=== PATIENT | female | born 1995 | race African-American/Black ===

== ENCOUNTER 2017-08-19 14:38 | Emergency (ER) | payer SELFPAY ==
[2017-08-19 15:13] LABS: Hematocrit 37.1 % (36.0-47.0); Mean Platelet Volume 8.8 fL (7.4-10.4); Red Blood Cell (RBC) Count 4.46 mill/uL (4.00-5.20); White Blood Cell (WBC) Count 6.4 thou/uL (4.8-10.8)
[2017-08-19 15:28] LABS: Band 1 % (5-11); Neutrophil 34 % (31-61); Ovalocytes SLIGHT = 2-5 cells (100X) (0-1/hpf); Polychromasia SLIGHT = 2-3 cells (100X) (0-2/hpf); Reactive Lymphocytes 16 % (0-10)
[2017-08-19 15:34] LABS: ALT (SGPT) 15 U/L (8-55); AST (SGOT) 18 U/L (5-34); Alkaline Phosphatase 65 U/L (40-150); Anion Gap 11 mmol/L (10-20); BUN (Urea Nitrogen) 12 mg/dL (7.0-18.7); Bilirubin, Total 0.6 mg/dL (0.2-1.2); Calc. Creatinine Clearance 0 mL/min (70-130); Calcium 9.7 mg/dL (7.8-10.44); Carbon Dioxide 25 mmol/L (22-29); Chloride 106 mmol/L (98-107); Estimated GFR-MDRD Greater than 90; Globulin 3.4 g/dL (2.4-3.5); Lipase 26 U/L (8-78); Protein, Total 7.6 g/dL (6.0-8.3)
[2017-08-19 16:35] LABS: Bilirubin Negative (Negative); Blood, Urine Negative (Negative); Glucose, Urine (Dipstick) Negative (Negative); Ketone, Urine Negative (Negative); Nitrite Negative (Negative); Protein, Urine (Dipstick) Negative (Neg-Trace); Urobilinogen 0.2 mg/dL (0.2-1.0)
[2017-08-19] MEDS ORDERED: Azithromycin 250 MG TAB ONE (16:53)
[2017-08-19] MEDS ORDERED: Gentamicin 80 MG/2 ML VIAL ONE (17:02)
== END 2017-08-19 18:05 | disposition home or self-care (01) ==
LOC: ERS 14:38
DX: N72 Inflammatory disease of cervix uteri (principal); A64 Unspecified sexually transmitted disease; I10 Essential (primary) hypertension; J45.909 Unspecified asthma, uncomplicated; Z79.899 Other long term (current) drug therapy
CPT/HCPCS: 36415; 80053; 81003; 81025; 83690; 85025; 87480; 87491; 87510; 87591; 87660; 96372; J1580

== ENCOUNTER 2017-08-27 20:51 | Emergency (ER) | payer MEDICAID, SELFPAY ==
[2017-08-27 21:14] LABS: Bilirubin Negative (Negative); Blood, Urine Negative (Negative); Glucose, Urine (Dipstick) Negative (Negative); Ketone, Urine Negative (Negative); Nitrite Negative (Negative); Protein, Urine (Dipstick) Negative (Neg-Trace)
[2017-08-27 21:16] LABS: Bacteria/HPF 1+ HPF (None Seen); Hyaline Casts/LPF 0-3 HYALINE CAST LPF (0-3 Hyaline); RBC/HPF 0-3 HPF (0-3); Squamous Epithelial 0-3 HPF (0-3); WBC/HPF 0-3 HPF (0-3)
--- NOTE | 2017-08-27 22:32 | ULT ---
PELVIC ULTRASOUND 08/27/17 HISTORY: Pelvic pain and lower back pain for two weeks. History of prior D\T\C in 04/2017. FINDINGS: Multiple transabdominal and endovaginal sonographic images of the pelvis are obtained. The uterus demonstrates a normal sonographic appearance and measures 8.1 cm x 3.8 cm x 4.9 cm. The endometrial stripe measures 0.6 cm in thickness which is within normal limits in a normal menstruat ing female patient. No fluid or fluid collection is seen in the endometrial cavity. The ovaries demonstrate a normal sonographic appearance bilaterally with peripheral follicles seen. The right ovary measures 3.5 cm x 1.8 cm x 2.8 cm with the left ovary measuring 8.6 cm x 2.2 cm x 1. 6 cm. Doppler evaluation of each ovary with spectral analysis and color flow evaluation demonstrates arter ial and venous flow. IMPRESSION: Normal appearing bilateral ovaries and uterus. POS: [facility]
== END 2017-08-27 22:59 | disposition left against medical advice (07) ==
LOC: ERS 20:51
DX: R10.30 Lower abdominal pain, unspecified (principal); I10 Essential (primary) hypertension; J45.909 Unspecified asthma, uncomplicated
CPT/HCPCS: 76856; 81003; 81015; 81025

== ENCOUNTER 2017-09-12 15:45 | Emergency (ER) | payer SELFPAY ==
[2017-09-12] MEDS ORDERED: Ondansetron ODT 4 MG TAB ONE (16:34)
[2017-09-12 16:41] LABS: #Basophils 0.1 thou/uL (0.0-0.2); #Eosinphils 0.2 thou/uL (0.0-0.7); #Lymphocytes 2.4 thou/uL (1.20-3.40); #Monocytes 0.3 thou/uL (0.11-0.59); #Neutrophils 1.9 thou/uL (1.40-6.50); %Basophils 1.3 % (0.0-1.0); %Eosinophils 3.8 % (0.0-10.0); %Lymphocytes 49.9 % (28.0-48.0); %Monocytes 5.6 % (0.0-4.0); Hematocrit 36.1 % (36.0-47.0); Mean Platelet Volume 9.1 fL (7.4-10.4); Red Blood Cell (RBC) Count 4.34 mill/uL (4.00-5.20); White Blood Cell (WBC) Count 4.9 thou/uL (4.8-10.8)
[2017-09-12 17:21] LABS: ALT (SGPT) 10 U/L (8-55); AST (SGOT) 15 U/L (5-34); Alkaline Phosphatase 47 U/L (40-150); Anion Gap 9 mmol/L (10-20); BUN (Urea Nitrogen) 7 mg/dL (7.0-18.7); Bilirubin, Total 0.8 mg/dL (0.2-1.2); Calc. Creatinine Clearance 0 mL/min (70-130); Calcium 9.3 mg/dL (7.8-10.44); Carbon Dioxide 26 mmol/L (22-29); Chloride 106 mmol/L (98-107); Estimated GFR-MDRD Greater than 90; Globulin 3.2 g/dL (2.4-3.5); Lipase 17 U/L (8-78); Protein, Total 7.1 g/dL (6.0-8.3)
[2017-09-12 17:21] LABS: Bilirubin Negative (Negative); Blood, Urine Negative (Negative); Glucose, Urine (Dipstick) Negative (Negative); Ketone, Urine Negative (Negative); Nitrite Negative (Negative); Protein, Urine (Dipstick) Trace mg/dL (Neg-Trace)
[2017-09-12 17:23] LABS: Bacteria/HPF 1+ HPF (None Seen); RBC/HPF 0-3 HPF (0-3); WBC/HPF 21-50 HPF (0-3)
[2017-09-12 17:25] LABS: Hyaline Casts/LPF 4-6 HYALINE CAST LPF (0-3 Hyaline)
--- NOTE | 2017-09-12 18:46 | ULT ---
PELVIC ULTRASOUND INCLUDING TRANSABDOMINAL AND VASCULAR DUPLEX WITH COLOR AND SPECTRAL DOPPLER IMAGI NG 09/12/17 HISTORY: Suprapubic pain for three days. FINDINGS: The uterus measures 9.7 x 4.7 x 7.0 cm. Endometrium is 0.5 cm. Right ovary measures 4.3 x 2.6 x 2.7 cm. The left ovary measures 3.6 x 2.8 x 2.2 cm. Incidental 1.8 cm diameter right ovarian follicle cy st. No abscess or abnormal fluid collection. There is some trace cul-de-sac fluid. COLOR AND SPECTRAL DOPPLER IMAGING WITH VASCULAR DUPLEX TO BOTH OVARIES: Vascular flow is documented bilaterally. No evidence for ovarian torsion. IMPRESSION: Unremarkable pelvic ultrasound. Appearance is stable when compared to a recent study of 08/27/17. POS: [facility]
== END 2017-09-12 19:05 | disposition home or self-care (01) ==
LOC: ERS 15:45
DX: R10.30 Lower abdominal pain, unspecified (principal); R51 Headache; I10 Essential (primary) hypertension; J45.909 Unspecified asthma, uncomplicated
CPT/HCPCS: 36415; 76856; 80053; 81003; 81015; 81025; 83690; 85025; Q0162

== ENCOUNTER 2017-10-10 09:50 | Emergency (ER) | payer SELFPAY ==
[2017-10-10 10:14] LABS: Bilirubin Negative (Negative); Blood, Urine Negative (Negative); Glucose, Urine (Dipstick) Negative (Negative); Ketone, Urine Negative (Negative); Nitrite Negative (Negative); Protein, Urine (Dipstick) Negative (Neg-Trace)
[2017-10-10 10:17] LABS: Bacteria/HPF 1+ HPF (None Seen); Hyaline Casts/LPF 4-6 HYALINE CAST LPF (0-3 Hyaline); RBC/HPF 0-3 HPF (0-3); WBC/HPF 21-50 HPF (0-3)
== END 2017-10-10 10:45 | disposition home or self-care (01) ==
LOC: ERS 09:50
DX: N30.00 Acute cystitis without hematuria (principal); I10 Essential (primary) hypertension; J45.909 Unspecified asthma, uncomplicated
CPT/HCPCS: 81003; 81015; 81025; 99284

== ENCOUNTER 2017-12-26 14:15 | Emergency (ER) | payer MEDICAID, SELFPAY ==
[2017-12-26 14:55] LABS: Bilirubin Negative (Negative); Blood, Urine Negative (Negative); Clarity CLOUDY (Clear); Glucose, Urine (Dipstick) Negative (Negative); Leukocyte Small (Negative); Nitrite Negative (Negative); Protein, Urine (Dipstick) Negative (Neg-Trace); Specific Gravity, Urine 1.025 (1.002-1.036)
[2017-12-26 14:57] LABS: Pregnancy Test - Urine (BHCG) Negative (Negative); Pregu Control Background? CLEAR/WHITE (CLR/WHITE); Pregu Control Bar Appear? YES (CONTROL BAR); Specific Gravity 1.025 (1.002-1.036)
[2017-12-26 14:58] LABS: Bacteria/HPF Rare-Few HPF (None Seen); Hyaline Casts/LPF 4-6 HYALINE CAST LPF (0-3 Hyaline); Pathc Cast-AUWi Flag 0.67 (0-2.49); RBC/HPF 0-3 HPF (0-3)
[2017-12-26 15:08] LABS: Hemoglobin 12.8 g/dL (12.0-16.0); Mean Corpuscular HGB CONC 32.5 g/dL (32.0-36.0); Mean Corpuscular Hemoglobin 27.7 pg (27.0-31.0); Mean Platelet Volume 9.1 fL (7.4-10.4); Platelet Count 207 thou/uL (130-400); RBC Distribution Width 12.4 % (11.5-14.5); Red Blood Cell (RBC) Count 4.61 mill/uL (4.20-5.40); White Blood Cell (WBC) Count 5.2 thou/uL (4.8-10.8)
[2017-12-26 15:24] LABS: Eosinophils 2 % (0-10); Lymphocytes 50 % (21-51); MDiff Complete? YES; Monocytes 3 % (0-10); Neutrophil 38 % (42-75); Ovalocytes SLIGHT = 2-5 cells (100X) (0-1/hpf); PLT Morphology Comment Appears Adequate; Reactive Lymphocytes 7 % (0-10)
[2017-12-26 15:36] LABS: ALT (SGPT) 16 U/L (8-55); AST (SGOT) 21 U/L (5-34); Albumin 4.6 g/dL (3.5-5.0); Alkaline Phosphatase 61 U/L (40-150); Anion Gap 10 mmol/L (10-20); BUN (Urea Nitrogen) 8 mg/dL (7.0-18.7); Bilirubin, Total 1.1 mg/dL (0.2-1.2); Calc. Creatinine Clearance 0 mL/min (70-130); Calcium 9.7 mg/dL (7.8-10.44); Carbon Dioxide 25 mmol/L (22-29); Chloride 104 mmol/L (98-107); Estimated GFR-MDRD Greater than 90; Globulin 3.6 g/dL (2.4-3.5); Glucose 74 mg/dL (70-105); Potassium 3.4 mmol/L (3.5-5.1); Protein, Total 8.2 g/dL (6.0-8.3); Sodium 136 mmol/L (136-145)
[2017-12-26] MEDS ORDERED: ISOVUE-370 76%-LOCM 1 ML ONE (16:48)
[2017-12-26 17:12] LABS: Magnesium 1.9 mg/dL (1.6-2.6)
[2017-12-26] MEDS ORDERED: diphenhydrAMINE 50 MG/ML VIAL ONE (18:25)
[2017-12-26] MEDS ORDERED: methylPREDNISolone Sod Succ/PF 125 MG/2 ML VIAL ONE (18:25)
[2017-12-26] MEDS ORDERED: Famotidine/PF 20 mg/2ml Vial ONE (18:25)
[2017-12-26] MEDS ORDERED: Ondansetron HCl/PF 4 MG/2 ML Vial ONE (18:52)
--- NOTE | 2017-12-26 20:09 | CT ---
CT OF ABDOMEN AND PELVIS PERFORMED WITH INTRAVENOUS CONTRAST ENHANCEMENT: 12/26/17 HISTORY: Abdominal pain which is now localized more to the right lower quadrant. The lung bases are clear. The liver, spleen, pancreas regions all appear unremarkable. The gallbladde r has been removed. Right and left adrenal glands and right and left kidneys are normal in sizes. No obstruction or renal calculi. No significant periaortic or mesenteric adenopathy. No signs of bowel o bstruction. CT OF PELVIS PERFORMED WITH CONTRAST ENHANCEMENT: There is a 2.5 cm right ovarian cyst. The endometrium is somewhat thickened. The appendix is normal. Some slight fullness to the lower uterine and cervix region. No abscess collection or other findings. IMPRESSION: 1. Normal appendix. 2. 2.5 cm right ovarian cyst. 3. Thickened endometrium. This is probable related to stage of menstrual cycle. There is some fu llness in the cervix and vagina region. This may be related to stage of menstrual cycle. POS: [facility]
[2017-12-26] MEDS ORDERED: cefTRIAXone\\ROCEPHIN 250 MG VIAL ONE (20:25)
[2017-12-29 21:53] LABS: Chlamydia by PCR Not Detected (NotDetected); GC by PCR DETECTED (NotDetected)
== END 2017-12-26 20:37 | disposition home or self-care (01) ==
LOC: ERS 14:15
DX: N73.9 Female pelvic inflammatory disease, unspecified (principal); N83.201 Unspecified ovarian cyst, right side; I10 Essential (primary) hypertension; J45.909 Unspecified asthma, uncomplicated
CPT/HCPCS: 36415; 74177; 80053; 81003; 81015; 81025; 83690; 83735; 85025; 87086; 87480; 87491; 87510; 87591; 87660; 96361; 96374; 96375; J0696; J1200; J2270; J2405; J2930; S0028

== ENCOUNTER 2018-01-11 18:44 | Emergency (ER) | payer SELFPAY ==
[2018-01-11 19:17] LABS: #Basophils 0.1 thou/uL (0.0-0.2); #Eosinphils 0.2 thou/uL (0.0-0.7); #Lymphocytes 2.4 thou/uL (1.20-3.40); #Monocytes 0.5 thou/uL (0.11-0.59); #Neutrophils 2.1 thou/uL (1.40-6.50); %Eosinophils 3.7 % (0.0-10.0); %Lymphocytes 45.7 % (21.0-51.0); %Monocytes 8.7 % (0.0-10.0); %Neutrophils 40.9 % (42.0-75.0); Hemoglobin 12.8 g/dL (12.0-16.0); Mean Corpuscular HGB CONC 31.3 g/dL (32.0-36.0); Mean Corpuscular Hemoglobin 26.3 pg (27.0-31.0); Mean Corpuscular Volume 84.1 fl (81.0-99.0); Mean Platelet Volume 8.9 fL (7.4-10.4); Platelet Count 216 thou/uL (130-400); RBC Distribution Width 12.5 % (11.5-14.5); Red Blood Cell (RBC) Count 4.86 mill/uL (4.20-5.40); White Blood Cell (WBC) Count 5.2 thou/uL (4.8-10.8)
[2018-01-11 19:32] LABS: CKMB 0.7 ng/mL (0-6.6); Troponin I 0.015 ng/mL (< 0.028)
[2018-01-11 19:36] LABS: ALT (SGPT) 12 U/L (8-55); AST (SGOT) 28 U/L (5-34); Albumin 4.4 g/dL (3.5-5.0); Alkaline Phosphatase 69 U/L (40-150); Anion Gap 13 mmol/L (10-20); BUN (Urea Nitrogen) 14 mg/dL (7.0-18.7); Bilirubin, Total 0.4 mg/dL (0.2-1.2); CK (CPK) 140 U/L (29-168); Calc. Creatinine Clearance 0 mL/min (70-130); Calcium 9.3 mg/dL (7.8-10.44); Carbon Dioxide 20 mmol/L (22-29); Chloride 107 mmol/L (98-107); Estimated GFR-MDRD Greater than 90; Globulin 3.6 g/dL (2.4-3.5); Glucose 104 mg/dL (70-105); Magnesium 2.3 mg/dL (1.6-2.6); Potassium 3.6 mmol/L (3.5-5.1); Sodium 136 mmol/L (136-145)
[2018-01-11] MEDS ORDERED: Ondansetron HCl/PF 4 MG/2 ML Vial ONE (20:21)
[2018-01-11] MEDS ORDERED: Acetaminophen 500 MG TAB ONE (20:21)
[2018-01-11 20:48] LABS: Pregnancy Test - Urine (BHCG) Negative (Negative); Pregu Control Background? CLEAR/WHITE (CLR/WHITE); Pregu Control Bar Appear? YES (CONTROL BAR); Specific Gravity 1.026 (1.002-1.036)
[2018-01-11] MEDS ORDERED: diphenhydrAMINE 25 MG CAP ONE (21:48)
[2018-01-11] MEDS ORDERED: Metoclopramide HCl 10 MG TAB PO SCH (22:00)
--- NOTE | 2018-01-16 14:30 | EKG ---
Test Reason : Blood Pressure : / mmHG Vent. Rate : 089 BPM Atrial Rate : 089 BPM P-R Int : 118 ms QRS Dur : 104 ms QT Int : 380 ms P-R-T Axes : 075 036 022 degrees QTc Int : 462 ms Normal sinus rhythm Nonspecific T wave abnormality Prolonged QT Abnormal ECG Confirmed by KODI RITCHIE, JORGE ALBERTO ([id number]), technical editor RICARDO HAYES ([id number]) on 01/16/2018 2:30:27 PM Referred By: Confirmed By:JORGE ALBERTO MARIEE MD
== END 2018-01-11 22:20 | disposition home or self-care (01) ==
LOC: ERS 18:44
DX: R55 Syncope and collapse (principal); T46.1X5A Adverse effect of calcium-channel blockers, initial encounter; I10 Essential (primary) hypertension; J45.909 Unspecified asthma, uncomplicated; Z79.899 Other long term (current) drug therapy
CPT/HCPCS: 80053; 81025; 82553; 83735; 84484; 85025; 93005; 96361; 96374; J2405

== ENCOUNTER 2018-02-13 11:21 | Emergency (ER) | payer SELFPAY ==
[2018-02-13] MEDS ORDERED: Ibuprofen 200 MG TAB ONE (11:31)
[2018-02-13] MEDS ORDERED: Ondansetron ODT 4 MG TAB ONE (11:31)
[2018-02-13] MEDS ORDERED: Metoclopramide HCl 10 MG/2 ML VIAL ONE (13:29)
[2018-02-13] MEDS ORDERED: Acetaminophen 500 MG TAB ONE (13:29)
[2018-02-13] MEDS ORDERED: diphenhydrAMINE 50 MG/ML VIAL ONE (13:29)
[2018-02-13 13:40] LABS: Pregnancy Test - Urine (BHCG) Negative (Negative); Pregu Control Background? CLEAR/WHITE (CLR/WHITE); Pregu Control Bar Appear? YES (CONTROL BAR); Specific Gravity 1.022 (1.002-1.036)
[2018-02-13 14:01] LABS: Bilirubin Negative (Negative); Blood, Urine Negative (Negative); Clarity CLOUDY (Clear); Glucose, Urine (Dipstick) Negative (Negative); Leukocyte Negative (Negative); Nitrite Negative (Negative); Protein, Urine (Dipstick) Negative (Neg-Trace); Specific Gravity, Urine 1.022 (1.002-1.036)
== END 2018-02-13 15:35 | disposition home or self-care (01) ==
LOC: ERS 11:21
DX: R11.2 Nausea with vomiting, unspecified (principal); R51 Headache; I10 Essential (primary) hypertension; J45.909 Unspecified asthma, uncomplicated
CPT/HCPCS: 81003; 81025; 96361; 96365; 96375; J1200; J2765; Q0162

== ENCOUNTER 2018-03-20 09:38 | Emergency (ER) | payer SELFPAY ==
[2018-03-20 10:47] LABS: Bilirubin Negative (Negative); Blood, Urine Moderate (Negative); Glucose, Urine (Dipstick) Negative (Negative); Leukocyte Negative (Negative); Nitrite Negative (Negative); Protein, Urine (Dipstick) Negative (Neg-Trace); Urobilinogen 0.2 mg/dL (0.2-1.0); pH, Urine 7.5 (5.0-9.0)
[2018-03-20 10:50] LABS: Clarity Hazy (Clear); Pregnancy Test - Urine (BHCG) Negative (Negative); Pregu Control Background? CLEAR/WHITE (CLR/WHITE); Pregu Control Bar Appear? YES (CONTROL BAR)
[2018-03-20 10:58] LABS: Bacteria/HPF Rare-Few HPF (None Seen); Hyaline Casts/LPF 0-3 HYALINE CAST LPF (0-3 Hyaline); RBC/HPF 0-3 HPF (0-3); Squamous Epithelial 0-3 HPF (0-3); WBC/HPF 0-3 HPF (0-3)
[2018-03-20] MEDS ORDERED: Ibuprofen 800 MG TAB ONE (11:09)
== END 2018-03-20 11:30 | disposition home or self-care (01) ==
LOC: ERS 09:38
DX: R31.9 Hematuria, unspecified (principal); M54.9 Dorsalgia, unspecified; J45.909 Unspecified asthma, uncomplicated
CPT/HCPCS: 81003; 81015; 81025; 99284

== ENCOUNTER 2018-03-28 10:48 | Emergency (ER) | payer SELFPAY ==
[2018-03-28 11:27] LABS: Bilirubin Negative (Negative); Blood, Urine Large (Negative); Clarity CLEAR (Clear); Glucose, Urine (Dipstick) Negative (Negative); Leukocyte Small (Negative); Nitrite Negative (Negative); Protein, Urine (Dipstick) Negative (Neg-Trace); Specific Gravity, Urine 1.014 (1.002-1.036); Urobilinogen 0.2 mg/dL (0.2-1.0); pH, Urine 6.5 (5.0-9.0)
[2018-03-28 11:28] LABS: Bacteria/HPF None Seen HPF (None Seen); Hyaline Casts/LPF 4-6 HYALINE CAST LPF (0-3 Hyaline); Pathc Cast-AUWi Flag 1.01 (0-2.49); Pregnancy Test - Urine (BHCG) Negative (Negative); Pregu Control Background? CLEAR/WHITE (CLR/WHITE); Pregu Control Bar Appear? YES (CONTROL BAR); RBC/HPF GREATER THAN 50-TNTC HPF (0-3); Specific Gravity 1.014 (1.002-1.036)
[2018-03-28 11:41] LABS: #Basophils 0.1 thou/uL (0.0-0.2); #Eosinphils 0.2 thou/uL (0.0-0.7); #Lymphocytes 2.9 thou/uL (1.20-3.40); #Monocytes 0.4 thou/uL (0.11-0.59); #Neutrophils 2.3 thou/uL (1.40-6.50); %Basophils 1.9 % (0.0-1.0); %Eosinophils 4.2 % (0.0-10.0); %Lymphocytes 49.1 % (21.0-51.0); %Monocytes 5.9 % (0.0-10.0); %Neutrophils 38.9 % (42.0-75.0); Hemoglobin 13.1 g/dL (12.0-16.0); Mean Corpuscular HGB CONC 33.7 g/dL (32.0-36.0); Mean Corpuscular Hemoglobin 27.9 pg (27.0-31.0); Mean Corpuscular Volume 82.6 fl (81.0-99.0); Mean Platelet Volume 8.7 fL (7.4-10.4); Platelet Count 165 thou/uL (130-400); RBC Distribution Width 12.7 % (11.5-14.5); White Blood Cell (WBC) Count 5.9 thou/uL (4.8-10.8)
[2018-03-28 12:05] LABS: ALT (SGPT) 14 U/L (8-55); AST (SGOT) 18 U/L (5-34); Albumin 4.4 g/dL (3.5-5.0); Alkaline Phosphatase 50 U/L (40-150); Anion Gap 11 mmol/L (10-20); BUN (Urea Nitrogen) 9 mg/dL (7.0-18.7); Calc. Creatinine Clearance 0 mL/min (70-130); Calcium 9.7 mg/dL (7.8-10.44); Carbon Dioxide 23 mmol/L (22-29); Chloride 108 mmol/L (98-107); Estimated GFR-MDRD Greater than 90; Globulin 3.4 g/dL (2.4-3.5); Glucose 82 mg/dL (70-105); Lipase 24 U/L (8-78); Potassium 3.4 mmol/L (3.5-5.1); Protein, Total 7.8 g/dL (6.0-8.3); Sodium 139 mmol/L (136-145)
== END 2018-03-28 11:53 | disposition home or self-care (01) ==
LOC: ERS 10:48
DX: N39.0 Urinary tract infection, site not specified (principal); I10 Essential (primary) hypertension; J45.909 Unspecified asthma, uncomplicated; N83.209 Unspecified ovarian cyst, unspecified side
CPT/HCPCS: 36415; 80053; 81003; 81015; 81025; 83690; 85025; 99284

== ENCOUNTER 2018-04-22 10:40 | Outpatient (CLI) | payer MEDICAID | END 2018-04-22 10:41 | disposition home or self-care (01) | LOC: BICULT 10:40 | PROVIDERS: ATTEND Family Medicine | DX: N94.6 Dysmenorrhea, unspecified (principal); R10.30 Lower abdominal pain, unspecified | CPT/HCPCS: 76856 ==

== ENCOUNTER 2018-04-29 09:41 | Emergency (ER) | payer MEDICAID ==
[2018-04-29 10:17] LABS: Bilirubin Negative (Negative); Blood, Urine Negative (Negative); Clarity CLEAR (Clear); Glucose, Urine (Dipstick) Negative (Negative); Leukocyte Small (Negative); Nitrite Negative (Negative); Protein, Urine (Dipstick) Negative (Neg-Trace); Specific Gravity, Urine 1.029 (1.002-1.036)
[2018-04-29 10:21] LABS: Pregnancy Test - Urine (BHCG) Negative (Negative); Pregu Control Background? CLEAR/WHITE (CLR/WHITE); Pregu Control Bar Appear? YES (CONTROL BAR); Specific Gravity 1.029 (1.002-1.036)
[2018-04-29 10:22] LABS: Bacteria/HPF Rare-Few HPF (None Seen); Hyaline Casts/LPF 0-3 HYALINE CAST LPF (0-3 Hyaline); Pathc Cast-AUWi Flag 0.14 (0-2.49); RBC/HPF 0-3 HPF (0-3); WBC/HPF 0-3 HPF (0-3)
--- NOTE | 2018-04-29 11:13 | RAD ---
ABDOMEN ONE VIEW: History: Abdominal pain. FINDINGS: Large amount of gas and stool is apparent throughout the colon and rectum. Small bowel gas pattern is nonspecific. Metallic clips overlie the gallbladder fossa. IMPRESSION: 1. Constipation. 2. Status post cholecystectomy. POS: [facility]
[2018-04-29] MEDS ORDERED: Acetaminophen 325 MG TAB ONE (11:59)
[2018-04-29] MEDS ORDERED: Bisacodyl 10 MG SUPP ONE (11:59)
== END 2018-04-29 12:20 | disposition home or self-care (01) ==
LOC: ERS 09:41
DX: K59.00 Constipation, unspecified (principal); I10 Essential (primary) hypertension; J45.909 Unspecified asthma, uncomplicated
CPT/HCPCS: 74018; 81003; 81015; 81025

== ENCOUNTER 2018-06-21 19:16 | Emergency (ER) | payer MEDICAID, SELFPAY ==
[2018-06-21 19:56] LABS: Bilirubin Negative (Negative); Blood, Urine Large (Negative); Clarity CLEAR (Clear); Glucose, Urine (Dipstick) Negative (Negative); Leukocyte Trace (Negative); Nitrite Negative (Negative); Protein, Urine (Dipstick) Negative (Neg-Trace); Specific Gravity, Urine 1.025 (1.002-1.036); pH, Urine 6.5 (5.0-9.0)
[2018-06-21 19:58] LABS: Bacteria/HPF Rare-Few HPF (None Seen); Hyaline Casts/LPF 4-6 HYALINE CAST LPF (0-3 Hyaline); Pathc Cast-AUWi Flag 0.43 (0-2.49); Pregnancy Test - Urine (BHCG) Negative (Negative); Pregu Control Background? CLEAR/WHITE (CLR/WHITE); Pregu Control Bar Appear? YES (CONTROL BAR); Specific Gravity 1.025 (1.002-1.036); Squamous Epithelial 0-3 HPF (0-3)
[2018-06-21 20:50] LABS: Hemoglobin 12.6 g/dL (12.0-16.0); Mean Corpuscular HGB CONC 33.5 g/dL (32.0-36.0); Mean Corpuscular Volume 83.5 fL (78.0-98.0); Mean Platelet Volume 8.7 fL (7.4-10.4); Platelet Count 192 thou/uL (130-400); RBC Distribution Width 11.9 % (11.5-14.5); White Blood Cell (WBC) Count 5.4 thou/uL (4.8-10.8)
[2018-06-21 20:55] LABS: INR-International Normal Ratio 1.1; Prothrombin Time 14.2 SEC (12.0-14.7)
[2018-06-21 21:08] LABS: ALT (SGPT) 12 U/L (8-55); AST (SGOT) 19 U/L (5-34); Albumin 4.4 g/dL (3.5-5.0); Alkaline Phosphatase 41 U/L (40-150); Anion Gap 16 mmol/L (10-20); BUN (Urea Nitrogen) 10 mg/dL (7.0-18.7); Bilirubin, Total 0.7 mg/dL (0.2-1.2); Calc. Creatinine Clearance 0 mL/min (70-130); Calcium 9.3 mg/dL (7.8-10.44); Carbon Dioxide 19 mmol/L (22-29); Chloride 108 mmol/L (98-107); Estimated GFR-MDRD Greater than 90; Globulin 3.5 g/dL (2.4-3.5); Glucose 74 mg/dL (70-105); Potassium 3.5 mmol/L (3.5-5.1); Protein, Total 7.9 g/dL (6.0-8.3); Sodium 139 mmol/L (136-145)
[2018-06-21 21:10] LABS: Eosinophils 1 % (0-10); Lymphocytes 63 % (21-51); MDiff Complete? YES; Monocytes 6 % (0-10); Neutrophil 30 % (42-75)
--- NOTE | 2018-06-21 22:45 | CT ---
CT BRAIN WITHOUT CONTRAST: INDICATIONS: Left-sided headache. COMPARISON: Prior exam dated 10/30/2016. FINDINGS: No acute infarct, hemorrhage, or hydrocephalus is present. The skull and extracranial soft tissues a ppear within normal limits. IMPRESSION: No acute intracranial abnormality. POS: [facility]
--- NOTE | 2018-06-21 22:49 | CT ---
CT ABDOMEN AND PELVIS WITHOUT CONTRAST: INDICATIONS: Right-sided flank pain and headache. COMPARISON: Prior exam dated 01/15/2017 and 12/26/2017. FINDINGS: No definite renal or ureteral calculus is evident. No hydronephrosis is seen. The gallbladder is goodman rgically absent. There is a mild amount of retained stool within the colon. There is a normal appen jefferson in the right lower quadrant. A small amount of free fluid is present within the pelvis, which is nonspecific, but can be physiologic. The bladder is partially decompressed. The rectum and perirec nestor soft tissues are unremarkable appearing. The lung bases are clear. Unopacified liver, spleen, pancreas, and adrenal glands are unremarkable appearing. No definite acute osseous abnormality is evident. IMPRESSION: 1. No renal or ureteral calculus. 2. Moderate amount of retained stool within the colon. 3. Normal appendix. 4. Cholecystectomy. 5. Mild free fluid in the pelvis can be physiologic in nature. POS: [facility]
[2018-06-23 05:45] LABS: Chlamydia by PCR Not Detected (NotDetected); GC by PCR Not Detected (NotDetected)
== END 2018-06-22 | disposition home or self-care (01) ==
LOC: ERS 19:16
DX: R51 Headache (principal); R10.9 Unspecified abdominal pain; I10 Essential (primary) hypertension; J45.909 Unspecified asthma, uncomplicated
CPT/HCPCS: 36415; 70450; 74176; 80053; 81003; 81015; 81025; 85025; 85610; 85730; 87480; 87491; 87510; 87591; 87660; 96365; 96366; 96375

== ENCOUNTER 2018-08-30 19:34 | Emergency (ER) | payer SELFPAY ==
[2018-08-30 20:07] LABS: Bilirubin Negative (Negative); Blood, Urine Negative (Negative); Clarity CLOUDY (Clear); Glucose, Urine (Dipstick) Negative (Negative); Leukocyte Small (Negative); Nitrite Negative (Negative); Pregnancy Test - Urine (BHCG) Negative (Negative); Pregu Control Background? CLEAR/WHITE (CLR/WHITE); Pregu Control Bar Appear? YES (CONTROL BAR); Protein, Urine (Dipstick) Negative (Neg-Trace); Specific Gravity 1.023 (1.002-1.036); Specific Gravity, Urine 1.023 (1.002-1.036); pH, Urine 6.5 (5.0-9.0)
[2018-08-30 20:09] LABS: Hyaline Casts/LPF 7-10 HYALINE CAST LPF (0-3 Hyaline); Pathc Cast-AUWi Flag 0.43 (0-2.49)
[2018-08-30 20:16] LABS: Bacteria/HPF 1+ HPF (None Seen); Crystals/HPF 2+ STARCH HPF (Negative); Other Casts/LPF 0-3 FINELY GRAN LPF (0-3 Hyaline); RBC/HPF 0-3 HPF (0-3); Renal Epithelial None Seen HPF (0-3); Transitional Epithelial NONE SEEN HPF (0-3)
[2018-08-30 20:56] LABS: Hemoglobin 12.5 g/dL (12.0-16.0); Mean Corpuscular HGB CONC 32.2 g/dL (32.0-36.0); Mean Corpuscular Volume 83.7 fL (78.0-98.0); Mean Platelet Volume 9.1 fL (7.4-10.4); Platelet Count 204 thou/uL (130-400); RBC Distribution Width 11.6 % (11.5-14.5); Red Blood Cell (RBC) Count 4.63 mill/uL (4.20-5.40); White Blood Cell (WBC) Count 5.7 thou/uL (4.8-10.8)
[2018-08-30 21:09] LABS: Eosinophils 5 % (0-10); Lymphocytes 64 % (21-51); MDiff Complete? YES; Monocytes 2 % (0-10); Neutrophil 29 % (42-75); PLT Morphology Comment Appears Adequate
[2018-08-30 21:11] LABS: ALT (SGPT) 15 U/L (8-55); AST (SGOT) 18 U/L (5-34); Albumin 4.4 g/dL (3.5-5.0); Alkaline Phosphatase 63 U/L (40-150); Anion Gap 14 mmol/L (10-20); BUN (Urea Nitrogen) 9 mg/dL (7.0-18.7); Bilirubin, Total 0.6 mg/dL (0.2-1.2); Calc. Creatinine Clearance 0 mL/min (70-130); Calcium 9.8 mg/dL (7.8-10.44); Carbon Dioxide 21 mmol/L (22-29); Chloride 107 mmol/L (98-107); Estimated GFR-MDRD Greater than 90; Globulin 3.6 g/dL (2.4-3.5); Glucose 83 mg/dL (70-105); Potassium 3.6 mmol/L (3.5-5.1); Sodium 138 mmol/L (136-145)
[2018-09-01 01:41] LABS: Chlamydia by PCR DETECTED (NotDetected); GC by PCR Not Detected (NotDetected)
== END 2018-08-30 22:15 | disposition home or self-care (01) ==
LOC: ERS 19:34
DX: N76.0 Acute vaginitis (principal); N39.0 Urinary tract infection, site not specified; I10 Essential (primary) hypertension; J45.909 Unspecified asthma, uncomplicated
CPT/HCPCS: 36415; 80053; 81003; 81015; 81025; 85025; 87086; 87480; 87491; 87510; 87591; 87660; 99284

== ENCOUNTER 2018-10-12 14:54 | Emergency (ER) | payer SELFPAY ==
[2018-10-12 16:06] LABS: Bilirubin Negative (Negative); Blood, Urine Negative (Negative); Clarity CLEAR (Clear); Glucose, Urine (Dipstick) Negative (Negative); Leukocyte Negative (Negative); Nitrite Negative (Negative); Protein, Urine (Dipstick) Negative (Neg-Trace); Specific Gravity, Urine 1.024 (1.002-1.036)
[2018-10-12 16:07] LABS: Pregnancy Test - Urine (BHCG) Negative (Negative); Pregu Control Background? CLEAR/WHITE (CLR/WHITE); Pregu Control Bar Appear? YES (CONTROL BAR); Specific Gravity 1.024 (1.002-1.036)
== END 2018-10-12 18:12 | disposition home or self-care (01) ==
LOC: ERS 14:54
DX: J06.9 Acute upper respiratory infection, unspecified (principal); I10 Essential (primary) hypertension; J45.909 Unspecified asthma, uncomplicated
CPT/HCPCS: 81003; 81025; 99283

== ENCOUNTER 2018-11-03 16:37 | Emergency (ER) | payer OTHER, SELFPAY ==
[2018-11-03 17:22] LABS: Bilirubin Negative (Negative); Blood, Urine Negative (Negative); Clarity CLEAR (Clear); Glucose, Urine (Dipstick) Negative (Negative); Leukocyte Small (Negative); Nitrite Negative (Negative); Protein, Urine (Dipstick) Negative (Neg-Trace); Specific Gravity, Urine 1.024 (1.002-1.036)
[2018-11-03 17:24] LABS: Bacteria/HPF None Seen HPF (None Seen); Hyaline Casts/LPF 0-3 HYALINE CAST LPF (0-3 Hyaline); Pathc Cast-AUWi Flag 0.87 (0-2.49); RBC/HPF 0-3 HPF (0-3)
[2018-11-03 17:26] LABS: Pregnancy Test - Urine (BHCG) POSITIVE (Negative); Pregu Control Background? CLEAR/WHITE (CLR/WHITE); Pregu Control Bar Appear? YES (CONTROL BAR); Specific Gravity 1.024 (1.002-1.036)
[2018-11-03 18:08] LABS: #Basophils 0.1 thou/uL (0.0-0.2); #Eosinphils 0.1 thou/uL (0.0-0.7); #Lymphocytes 2.8 thou/uL (1.20-3.40); #Monocytes 0.4 thou/uL (0.11-0.59); #Neutrophils 2.9 thou/uL (1.40-6.50); %Eosinophils 1.9 % (0.0-10.0); %Lymphocytes 44.9 % (21.0-51.0); %Monocytes 6.1 % (0.0-10.0); %Neutrophils 46.2 % (42.0-75.0); Hemoglobin 12.5 g/dL (12.0-16.0); Mean Corpuscular HGB CONC 31.5 g/dL (32.0-36.0); Mean Corpuscular Hemoglobin 25.9 pg (27.0-31.0); Mean Platelet Volume 9.1 fL (7.4-10.4); Platelet Count 239 thou/uL (130-400); RBC Distribution Width 12.4 % (11.5-14.5); Red Blood Cell (RBC) Count 4.82 mill/uL (4.20-5.40); White Blood Cell (WBC) Count 6.3 thou/uL (4.8-10.8)
[2018-11-03 18:33] LABS: ALT (SGPT) 34 U/L (8-55); AST (SGOT) 36 U/L (5-34); Albumin 4.8 g/dL (3.5-5.0); Alkaline Phosphatase 96 U/L (40-150); Anion Gap 14 mmol/L (10-20); BUN (Urea Nitrogen) 12 mg/dL (7.0-18.7); Bilirubin, Total 0.5 mg/dL (0.2-1.2); Calc. Creatinine Clearance 0 mL/min (70-130); Calcium 9.9 mg/dL (7.8-10.44); Carbon Dioxide 22 mmol/L (22-29); Chloride 105 mmol/L (98-107); Estimated GFR-MDRD Greater than 90; Globulin 4.2 g/dL (2.4-3.5); Glucose 65 mg/dL (70-105); Potassium 3.5 mmol/L (3.5-5.1); Sodium 137 mmol/L (136-145)
[2018-11-03] MEDS ORDERED: Azithromycin 250 MG TAB ONE (18:39)
[2018-11-03] MEDS ORDERED: cefTRIAXone\\ROCEPHIN 250 MG VIAL ONE (18:39)
[2018-11-03] MEDS ORDERED: Lidocaine 1% PF 5 ML VIAL ONE (18:39)
--- NOTE | 2018-11-03 20:57 | ULT ---
TRANSABDOMINAL AND TRANSVAGINAL PELVIC ULTRASOUND WITH DOPPLER 11/03/18 PROVIDED CLINICAL HISTORY: Abdominal pain. FINDINGS: The uterus measures about 8.5 x 4.5 x 5.3 cm and demonstrates a small amount of fluid echogenicity wi thin the endometrial canal without evidence for yolk sac or other definitive features for a gestation al sac. The right ovary measures about 4.3 x 2.6 x 2.4 cm and demonstrates a complex cystic mass that may ref lect corpus luteal cyst and measures approximately 2.4 cm. Left ovary measures about 3.2 x 2.1 x 2.2 cm and appears sonographically normal. There is a small nic unt of simple appearing free pelvic fluid within the cul-de-sac. Color doppler and spectral analysis of the ovarian waveforms demonstrate normal flow bilaterally. IMPRESSION: 1. No definite sonographic evidence for an intrauterine gestational sc. Correlation with serial followup beta HCG values recommended. Followup pelvic ultrasound may be useful as indicated. 2. Complex cystic mass involving the right ovary likely reflects corpus luteal cyst. Followup is recommended. POS: [facility]
== END 2018-11-03 20:24 | disposition home or self-care (01) ==
LOC: ERS 16:37
DX: O23.41 Unspecified infection of urinary tract in pregnancy, first trimester (principal); O99.511 Diseases of the respiratory system complicating pregnancy, first trimester; J45.909 Unspecified asthma, uncomplicated; O11.1 Pre-existing hypertension with pre-eclampsia, first trimester; Z3A.01 Less than 8 weeks gestation of pregnancy
CPT/HCPCS: 36415; 76856; 80053; 81003; 81015; 81025; 84702; 85025; 87480; 87491; 87510; 87591; 87660; 96372; J0696; J2001

== ENCOUNTER 2018-12-19 20:25 | Emergency (ER) | payer MEDICAID, OTHER ==
[2018-12-19 20:56] LABS: Bilirubin Negative (Negative); Blood, Urine Negative (Negative); Clarity CLEAR (Clear); Glucose, Urine (Dipstick) Negative (Negative); Leukocyte Negative (Negative); Nitrite Negative (Negative); Protein, Urine (Dipstick) Trace mg/dL (Neg-Trace); Specific Gravity, Urine 1.029 (1.002-1.036)
--- NOTE | 2018-12-19 22:13 | ULT ---
PELVIC ULTRASOUND INCLUDING TRANSABDOMINAL AND VASCULAR DUPLEX WITH COLOR AND SPECTRAL DOPPLER IMAGIN G: HISTORY: Abdominal pain. Eleven weeks' . Confirmed viable IUP. TECHNIQUE: No transvaginal exam is performed. FINDINGS: There is an early viable intrauterine with a crown-rump length of 4.3 cm, equalling 11 week s 1 day gestation, with an EDC of 07/09/2019. heart rate is 175 beats per minute. Right and l eft ovaries are within normal limits. Vascular flow is documented bilaterally. No evidence for ovar darwin torsion. IMPRESSION: 1. Unremarkable early viable intrauterine , at 11 weeks' 1 day gestation, with an expected date of confinement of 07/09/2019. 2. Unremarkable right and left ovaries. 3. No evidence for ovarian torsion. POS: [facility]
[2018-12-19] MEDS ORDERED: Fleet Enema 133 ML BOT FS SCH (22:30)
== END 2018-12-19 22:35 | disposition home or self-care (01) ==
LOC: ERS 20:25
DX: O99.611 Diseases of the digestive system complicating pregnancy, first trimester (principal); K59.00 Constipation, unspecified; O99.511 Diseases of the respiratory system complicating pregnancy, first trimester; J45.909 Unspecified asthma, uncomplicated; Z79.899 Other long term (current) drug therapy; Z3A.11 11 weeks gestation of pregnancy
CPT/HCPCS: 76856; 81003; 93976

== ENCOUNTER 2019-01-25 22:01 | Emergency (ER) | payer OTHER ==
[2019-01-25 22:48] LABS: Bilirubin Negative (Negative); Blood, Urine Negative (Negative); Clarity CLEAR (Clear); Glucose, Urine (Dipstick) Negative (Negative); Leukocyte Negative (Negative); Nitrite Negative (Negative); Protein, Urine (Dipstick) Negative (Neg-Trace); Specific Gravity, Urine 1.027 (1.002-1.036)
[2019-01-25 22:51] LABS: #Basophils 0.1 thou/uL (0.0-0.2); #Eosinphils 0.1 thou/uL (0.0-0.7); #Lymphocytes 2.8 thou/uL (1.20-3.40); #Monocytes 0.6 thou/uL (0.11-0.59); #Neutrophils 5.5 thou/uL (1.40-6.50); %Basophils 0.9 % (0.0-1.0); %Eosinophils 1.5 % (0.0-10.0); %Lymphocytes 30.6 % (21.0-51.0); %Monocytes 6.4 % (0.0-10.0); %Neutrophils 60.6 % (42.0-75.0); Mean Corpuscular HGB CONC 32.9 g/dL (32.0-36.0); Mean Corpuscular Hemoglobin 27.1 pg (27.0-31.0); Mean Corpuscular Volume 82.2 fL (78.0-98.0); Mean Platelet Volume 8.3 fL (7.4-10.4); Platelet Count 255 thou/uL (130-400); RBC Distribution Width 12.1 % (11.5-14.5); Red Blood Cell (RBC) Count 4.06 mill/uL (4.20-5.40)
[2019-01-25 23:12] LABS: ALT (SGPT) 13 U/L (8-55); AST (SGOT) 16 U/L (5-34); Albumin 3.9 g/dL (3.5-5.0); Alkaline Phosphatase 53 U/L (40-150); Anion Gap 11 mmol/L (10-20); BUN (Urea Nitrogen) 9 mg/dL (7.0-18.7); Bilirubin, Total 0.2 mg/dL (0.2-1.2); Calc. Creatinine Clearance 0 mL/min (70-130); Calcium 9.7 mg/dL (7.8-10.44); Carbon Dioxide 24 mmol/L (22-29); Chloride 102 mmol/L (98-107); Estimated GFR-MDRD Greater than 90; Globulin 3.7 g/dL (2.4-3.5); Glucose 73 mg/dL (70-105); Potassium 3.6 mmol/L (3.5-5.1); Protein, Total 7.6 g/dL (6.0-8.3); Sodium 133 mmol/L (136-145)
--- NOTE | 2019-01-26 08:19 | ULT ---
PRELIMINARY REPORT/[facility]/EMERGENTY AFTER-HOURS PROCEDURE Addendum created by Doroteo Mukherjee MD on 01/26/2019 2:45 AM Central Time ( & [place]) PLEASE NOTE CORRECTION TO HEART RATE: US , Limited EXAM DATE/TIME: 01/26/2019 12:16 AM CLINICAL HISTORY: 23 years old, female; Pain and signs and symptoms; Lmp or gestational age (in weeks): 16w4d; Antepart um complications; Other: Constipation x 4 days, n/v; complicated by abdominal or pelvic ariel n; Lower; Second trimester; ; Patient HX: Midline pelvic pain x 2 days; Additional info: No vaginal bleeding TECHNIQUE: Real-time ultrasound of the maternal uterus with image documentation. Exam focused on the cl inical indication. COMPARISON: No relevant prior studies available. FINDINGS: GESTATION: Gestation: Fetus: Single Heart rate: 163 bpm Presentation: Vertex Placenta: Posterior. No abruption. Amniotic fluid: Normal volume. Head, face, and neck: Head, face, and neck anatomy partially seen appear normal. Heart: Heart 4 chambers appear normal. Abdomen: Abdominal anatomy near completely appears normal. Umbilical cord and insertion: Umbilical cord appears normal. Spine: Spinal anatomy partially seen and appears normal. Extremities: Extremities optimally seen. BIOMETRY: Estimated weight: EFW: 157 grams Biparietal diameter: BPD: 3.7 cm Head circumference: HC: 13.2 cm Abdominal circumference: AC: 10.5 cm Femur length: FL: 2.1 cm MATERNAL: Uterus: Unremarkable. No myometrial mass. Cervix: 3.9 cm as visualized. Closed. Intraperitoneal: Free fluid: No free fluid. Bilateral adnexal structures appear normal. IMPRESSION: 1. Single viable intrauterine with EGA 16 weeks, 4 days by current US. 2. No acute findings. 3. Bilateral adnexal structures appear normal. Initial Report created on 01/26/2019 2:31 AM Central Time ([place] & [place]) US , Limited EXAM DATE/TIME: 01/26/2019 12:16 AM TECHNIQUE: Real-time ultrasound of the maternal uterus with image documentation. Exam focused on the cl inical indication. COMPARISON: No relevant prior studies available. FINDINGS: GESTATION: Gestation: Fetus: Single Heart rate: 123 bpm Presentation: Vertex Placenta: Posterior. No abruption. Amniotic fluid: Normal volume. Head, face, and neck: Head, face, and neck anatomy partially seen appear normal. Heart: Heart 4 chambers appear normal. Abdomen: Abdominal anatomy near completely appears normal. Umbilical cord and insertion: Umbilical cord appears normal. Spine: Spinal anatomy partially seen and appears normal. Extremities: Extremities optimally seen. BIOMETRY: Estimated weight: EFW: 157 grams Biparietal diameter: BPD: 3.7 cm Head circumference: HC: 13.2 cm Abdominal circumference: AC: 10.5 cm Femur length: FL: 2.1 cm MATERNAL: Uterus: Unremarkable. No myometrial mass. Cervix: 3.9 cm as visualized. Closed. Intraperitoneal: Free fluid: No free fluid. Bilateral adnexal structures appear normal. IMPRESSION: 1. Single viable intrauterine with EGA 16 weeks, 4 days by current US. 2. No acute findings. 3. Bilateral adnexal structures appear normal. Thank you for allowing us to participate in the care of your patient. Dictated and Authenticated by: Doroteo Mukherjee MD 01/26/2019 2:31 AM Central Time ([place] & [place]) FINAL REPORT OB ULTRASOUND: HISTORY: complicated by abdominal and pelvic pain. FINDINGS: Real-time imaging of the pelvis shows a single viable intrauterine , in a vertex presentatio n. The placenta is posterior in location. The lower margin of the placenta is close but does not co amrita the cervical os. The cervical canal length is 3.8 cm. heart rate is 163 beats per minute. The amniotic fluid is adequate for this stage of . measurements are as follows: BPD: 3.7 cm (17 weeks 2 days). HEAD CIRCUMFERENCE: 13.2 cm (16 weeks 6 days). ABDOMINAL CIRCUMFERENCE: 10.5 cm (16 weeks 3 days). FEMUR LENGTH: 2.1 cm (16 weeks 3 days). There is limited assessment of anatomy on this emergent exam. No anomalies are detected. The ovaries are not visualized. No other findings. IMPRESSION: 1. Single viable intrauterine , in a vertex presentation. Overall measurements correspond to a gestational age of 16 weeks 4 days. Estimated date of delivery is 07/09/2019. 2. Placenta which is posterior in location. No evidence of previa or abruptio. 3. Adnexal regions are not well visualized, but no abnormalities are seen. 4. This report is in agreement with the temporary report issued by [facility]. POS: [facility]
== END 2019-01-26 03:03 | disposition home or self-care (01) ==
LOC: ERS 22:01
DX: O99.612 Diseases of the digestive system complicating pregnancy, second trimester (principal); K59.00 Constipation, unspecified; O99.512 Diseases of the respiratory system complicating pregnancy, second trimester; J45.909 Unspecified asthma, uncomplicated; Z3A.16 16 weeks gestation of pregnancy
CPT/HCPCS: 36415; 76856; 80053; 81003; 85025; 87086; 93976

== ENCOUNTER 2019-01-27 14:54 | Emergency (ER) | payer OTHER ==
[2019-01-27 15:42] LABS: #Basophils 0.1 thou/uL (0.0-0.2); #Eosinphils 0.1 thou/uL (0.0-0.7); #Lymphocytes 1.9 thou/uL (1.20-3.40); #Monocytes 0.4 thou/uL (0.11-0.59); %Basophils 0.9 % (0.0-1.0); %Eosinophils 1.1 % (0.0-10.0); %Lymphocytes 25.4 % (21.0-51.0); %Monocytes 5.7 % (0.0-10.0); %Neutrophils 66.9 % (42.0-75.0); Hemoglobin 10.7 g/dL (12.0-16.0); Mean Corpuscular HGB CONC 33.4 g/dL (32.0-36.0); Mean Corpuscular Hemoglobin 27.7 pg (27.0-31.0); Platelet Count 243 thou/uL (130-400); RBC Distribution Width 12.1 % (11.5-14.5); Red Blood Cell (RBC) Count 3.86 mill/uL (4.20-5.40); White Blood Cell (WBC) Count 7.5 thou/uL (4.8-10.8)
[2019-01-27 16:04] LABS: ALT (SGPT) 12 U/L (8-55); AST (SGOT) 16 U/L (5-34); Albumin 3.6 g/dL (3.5-5.0); Alkaline Phosphatase 48 U/L (40-150); Anion Gap 10 mmol/L (10-20); BUN (Urea Nitrogen) 7 mg/dL (7.0-18.7); Bilirubin, Total 0.3 mg/dL (0.2-1.2); Calc. Creatinine Clearance 0 mL/min (70-130); Calcium 9.3 mg/dL (7.8-10.44); Carbon Dioxide 24 mmol/L (22-29); Chloride 104 mmol/L (98-107); Estimated GFR-MDRD Greater than 90; Globulin 3.5 g/dL (2.4-3.5); Glucose 66 mg/dL (70-105); Lipase 21 U/L (8-78); Potassium 4.1 mmol/L (3.5-5.1); Protein, Total 7.1 g/dL (6.0-8.3); Sodium 134 mmol/L (136-145)
[2019-01-27] MEDS ORDERED: Acetaminophen 500 MG TAB ONE (16:20)
--- NOTE | 2019-01-27 16:24 | ULT ---
OB ULTRASOUND, COMPLETE: 01/27/19 INDICATION: Peristent back pain, patient. FINDINGS: There is a live intrauterine gestation which by sonographic imaging corresponds to 16 weeks, 4 day ge station. Biparietal diameter measures 3.6 cm corresponding to 17 weeks, 1 day, head circumference 12. 8 cm corresponding to 16 weeks, 4 days, abdominal circumference 10.6 cm corresponding to 16 weeks, 4 days and femoral length 2.2 cm corresponding to 16 weeks, [address]. [address] estimated date of deliv abdoulaye by ultrasound at 07/10/19 with ultrasound age of 16 weeks, 4 days. Estimated weight is 164 g kimberlyn which places the fetus at the 38th percentile by Hadlock criteria. cardiac activity is doc umented at 157 beats per minute. The placenta is located primarily in the posterior location. Fetus i s in a breech lie. IMPRESSION: Live intrauterine gestation, as described above. Continued age appropriate imaging screen is recommen ded. POS: [facility]
[2019-01-27 16:33] LABS: Bilirubin Negative (Negative); Blood, Urine Negative (Negative); Clarity CLEAR (Clear); Glucose, Urine (Dipstick) Negative (Negative); Leukocyte Small (Negative); Nitrite Negative (Negative); Protein, Urine (Dipstick) Trace mg/dL (Neg-Trace); Specific Gravity, Urine 1.021 (1.002-1.036); Urobilinogen 0.2 mg/dL (0.2-1.0); pH, Urine 8.5 (5.0-9.0)
[2019-01-27 16:34] LABS: Bacteria/HPF 1+ HPF (None Seen); Hyaline Casts/LPF 7-10 HYALINE CAST LPF (0-3 Hyaline); Pathc Cast-AUWi Flag 1.49 (0-2.49)
[2019-01-27 16:39] LABS: Renal Epithelial None Seen HPF (0-3); Transitional Epithelial NONE SEEN HPF (0-3)
== END 2019-01-27 17:15 | disposition home or self-care (01) ==
LOC: ERS 14:54
DX: O99.89 Other specified diseases and conditions complicating pregnancy, childbirth and the puerperium (principal); R10.30 Lower abdominal pain, unspecified; O99.512 Diseases of the respiratory system complicating pregnancy, second trimester; J45.909 Unspecified asthma, uncomplicated; Z3A.16 16 weeks gestation of pregnancy
CPT/HCPCS: 36415; 76805; 80053; 81003; 81015; 83690; 85025; 87086

== ENCOUNTER 2019-03-01 13:33 | Outpatient (CLI) | payer OTHER ==
--- NOTE | 2019-03-01 15:02 | ULT ---
OB ULTRASOUND: HISTORY: anatomy. FINDINGS: A single live intrauterine gestation is seen with measurements corresponding to an estimated gestatio nal age of 21 weeks 1 day and BYRON of 07/11/2019. The estimated weight measures 380 g (13 oz), which corresponds to the 17th percentile by Hadlock criteria. measurements are as follows: BPD: 5.13 cm (21 weeks 4 days). HC: 18.62 cm (21 weeks 0 days). AC: 14.41 cm (19 weeks 6 days). FL: 3.76 cm (22 weeks 1 day). heart rate measures 146 beats per minute. The placenta is posterior, without evidence of place nta previa. RUTH measures 14.48 cm. A three-vessel cord, cord insertion, kidneys, bladder, four-chambered heart, lateral ventricles , cerebellum, face/lips, and upper and lower limbs are visualized. No definite anomalies are s een. IMPRESSION: Single live intrauterine of 21 weeks 1 day estimated gestational age and an estimated date of delivery of 07/11/2019. POS: [facility]
== END 2019-03-01 13:34 | disposition home or self-care (01) ==
LOC: BICULT 13:33
PROVIDERS: ATTEND Family Medicine
DX: O09.892 Supervision of other high risk pregnancies, second trimester (principal); Z3A.21 21 weeks gestation of pregnancy
CPT/HCPCS: 76805

== ENCOUNTER 2019-03-27 11:19 | Emergency (ER) | payer OTHER | END 2019-03-27 12:42 | disposition home or self-care (01) | LOC: ERS 11:19 | DX: J02.9 Acute pharyngitis, unspecified (principal); I10 Essential (primary) hypertension; J45.909 Unspecified asthma, uncomplicated | CPT/HCPCS: 87081; 87430; 99283 ==

== ENCOUNTER 2019-04-12 21:40 | Emergency (ER) | payer OTHER ==
[2019-04-12 22:42] LABS: #Eosinphils 0.2 thou/uL (0.0-0.7); #Lymphocytes 3.1 thou/uL (1.20-3.40); #Monocytes 0.8 thou/uL (0.11-0.59); #Neutrophils 6.3 thou/uL (1.40-6.50); %Basophils 0.3 % (0.0-1.0); %Lymphocytes 29.5 % (21.0-51.0); %Monocytes 7.4 % (0.0-10.0); %Neutrophils 60.7 % (42.0-75.0); Hemoglobin 9.4 g/dL (12.0-16.0); Mean Corpuscular HGB CONC 32.8 g/dL (32.0-36.0); Mean Corpuscular Hemoglobin 26.6 pg (27.0-31.0); Mean Corpuscular Volume 81.2 fL (78.0-98.0); Platelet Count 199 thou/uL (130-400); RBC Distribution Width 12.1 % (11.5-14.5); Red Blood Cell (RBC) Count 3.53 mill/uL (4.20-5.40); White Blood Cell (WBC) Count 10.4 thou/uL (4.8-10.8)
[2019-04-12] MEDS ORDERED: Ondansetron PF 4 MG/2 ML Vial ONE (22:52)
[2019-04-12 23:04] LABS: ALT (SGPT) 9 U/L (8-55); AST (SGOT) 13 U/L (5-34); Albumin 3.4 g/dL (3.5-5.0); Alkaline Phosphatase 68 U/L (40-150); Anion Gap 12 mmol/L (10-20); BUN (Urea Nitrogen) 6 mg/dL (7.0-18.7); Bilirubin, Total 0.3 mg/dL (0.2-1.2); Calc. Creatinine Clearance 0 mL/min (70-130); Calcium 9.1 mg/dL (7.8-10.44); Carbon Dioxide 22 mmol/L (22-29); Chloride 105 mmol/L (98-107); Estimated GFR-MDRD Greater than 90; Globulin 3.2 g/dL (2.4-3.5); Glucose 79 mg/dL (70-105); Lipase 30 U/L (8-78); Potassium 3.1 mmol/L (3.5-5.1); Protein, Total 6.6 g/dL (6.0-8.3); Sodium 136 mmol/L (136-145)
--- NOTE | 2019-04-12 23:26 | ULT ---
LIMITED OB ULTRASOUND: Date: 04/12/19 INDICATION: Premature contractions. Assess for cervical length. FINDINGS/IMPRESSION: Translabral evaluation of the cervix reveals a cervical length of 3.5 cm. Position: Vertex. Placenta: Posterior. heart rate: 157 bpm. RUTH: 12.3 cm. POS: [facility]
[2019-04-13] MEDS ORDERED: Potassium Chloride 20 MEQ TAB ONE (00:14)
== END 2019-04-13 01:41 | disposition home or self-care (01) ==
LOC: ERS 21:40
DX: O21.9 Vomiting of pregnancy, unspecified (principal); O99.89 Other specified diseases and conditions complicating pregnancy, childbirth and the puerperium; R19.7 Diarrhea, unspecified; O99.282 Endocrine, nutritional and metabolic diseases complicating pregnancy, second trimester; E87.6 Hypokalemia; O10.912 Unspecified pre-existing hypertension complicating pregnancy, second trimester; O99.512 Diseases of the respiratory system complicating pregnancy, second trimester; Z87.891 Personal history of nicotine dependence; Z3A.27 27 weeks gestation of pregnancy
CPT/HCPCS: 36415; 76815; 80053; 83690; 85025; 96361; 96374; J2405

== ENCOUNTER 2019-05-23 21:48 | Day surgery (SDC) | payer OTHER ==
[2019-05-23 22:29] VITALS: BMI 28.8
[2019-05-23] MEDS ORDERED: hydrALAZINE 20 MG/ML VIAL SLOW IVP PRN (22:46)
--- NOTE | 2019-05-23 22:50 | PDOC.LDHP ---
Labor and Delivery H&P Chief complaint: abdominal pain (LAP, no real CTX, no LOF) HPI: Patient of Dr Herber Fisher: [id number] Location: LDR3 23 yo last delivery induced for PIH at 36 weeks, here for LAP. No fever, no real CTX but unsure, no VB, no LOF. Good FM. States past Hx CHTN but not on meds...taking ASA once a day. Recently RX'd for yeast. Review of systems: complete ROS completed. HX asthma and uses inhalers...last 2 months ago or so. Current gestational age (weeks): 33 (2 days) Due date: 07/09/19 Dating criteria: last menstrual period Grav: 3 Para: 2 OB History Details: x 2; induced with last at 36 weeks Current complications: hypertension (off meds) Abnormal US findings: No Current medications: pre-yaakov vitamins, other (ASA) Previous surgical history: cholecystectomy, other (D&C with last delivery due to bleeding. Also with HX T&A.) Allergies/Adverse Reactions: Allergies Allergy/AdvReac Type Severity Reaction Status Date / Time Iodine and Iodide Containing Allergy Severe Short of Verified 08/25/15 20:28 Produc Breath Penicillins Allergy Severe Swollen Verified 11/28/14 11:39 Lips Social history: none - Physical Exam Vital signs reviewed and normal: yes (142/80 and 133/80) General: NAD Heart: RRR Lungs: CTAB Abdomen: gravid FHT: category 1 [place] contractions every: no CTX - Assessment CHTN off meds at 33 weeks 2 days with LAP, nonspecific. Do not suspect PTL. BPs mild elevation, off meds. - Plan Plan: observation in L&D (HX CHTN off meds. BPs not severe and no sxs now. WQe can recheck in 48-72 hrs in clinic. I have ordered UA and cervical length as screen. Do not suspect PTL. I am not ordering PIH labs as known CHTN HX and nonsevere BPs. NST reactive.)
[2019-05-23 22:58] LABS: Bilirubin Small (Negative); Blood, Urine Negative (Negative); Glucose, Urine (Dipstick) Negative (Negative); Leukocyte Negative (Negative); Nitrite Negative (Negative); Protein, Urine (Dipstick) 30 mg/dL (Neg-Trace)
[2019-05-23 23:05] LABS: Clarity Hazy (Clear)
[2019-05-23 23:06] LABS: Bacteria/HPF 1+ HPF (None Seen); RBC/HPF 0-3 HPF (0-3); WBC/HPF 0-3 HPF (0-3)
[2019-05-23 23:07] LABS: Urine Culture Reflex No No
--- NOTE | 2019-05-23 23:19 | PDOC.EVN ---
Event Note - Event Note Event Note: Possible ASB...RX with macrobid at home CX 2.8cm...ok
--- NOTE | 2019-05-23 23:23 | ULT ---
LIMITED OB ULTRASOUND: HISTORY: Exam requested to evaluate cervical length. FINDINGS: A single liver intrauterine gestation is seen with a heart rate of 152 beats per minute. Cervi danuta length measures 2.8 cm. The placenta is posterior without evidence of placenta previa. IMPRESSION: Cervical length of 2.8 cm. POS: [facility]
== END 2019-05-23 23:35 | disposition home or self-care (01) ==
LOC: L&D/OP 21:48
PROVIDERS: ATTEND Family Medicine
DX: O99.89 Other specified diseases and conditions complicating pregnancy, childbirth and the puerperium (principal); R10.30 Lower abdominal pain, unspecified; O10.913 Unspecified pre-existing hypertension complicating pregnancy, third trimester; O99.513 Diseases of the respiratory system complicating pregnancy, third trimester; J45.909 Unspecified asthma, uncomplicated; Z3A.33 33 weeks gestation of pregnancy; Z79.82 Long term (current) use of aspirin; Z88.0 Allergy status to penicillin; Z91.041 Radiographic dye allergy status
CPT/HCPCS: 76815; 81001; 99283

== ENCOUNTER 2019-06-06 12:29 | Day surgery (SDC) | payer OTHER ==
[2019-06-06 12:51] VITALS: BP 126/74; TEMP 98.8; BMI 28.6
[2019-06-06] MEDS ORDERED: hydrALAZINE 20 MG/ML VIAL SLOW IVP PRN (12:58)
[2019-06-06] MEDS ORDERED: Acetaminophen 325 MG TAB PO PRN (12:59)
[2019-06-06] MEDS ORDERED: Lactated Ringer's 1,000 ML IV SCH ×2 (13:00)
[2019-06-06 14:50] LABS: Bilirubin Negative (Negative); Blood, Urine Negative (Negative); Glucose, Urine (Dipstick) Negative (Negative); Leukocyte Moderate (Negative); Nitrite Negative (Negative); Protein, Urine (Dipstick) Negative (Neg-Trace); Urobilinogen 0.2 mg/dL (Less than 2)
[2019-06-06 14:55] LABS: Clarity Hazy (Clear)
[2019-06-06 14:56] LABS: RBC/HPF None Seen HPF (0-3)
[2019-06-06 14:57] LABS: Bacteria/HPF 2+ HPF (None Seen); Squamous Epithelial 0-3 HPF (0-3)
[2019-06-06] MEDS ORDERED: cefTRIAXone\\ROCEPHIN 1 GM VIAL IM SCH (15:45)
--- NOTE | 2019-06-06 16:13 | PRG ---
DATE OF SERVICE: 06/06/2019 OB ED note. TIME OF SERVICE: 1540 hours. PRESENTING COMPLAINT: Dysuria and midline lower abdominal pain at 35 weeks' gestation. HISTORY OF PRESENT ILLNESS: The patient sees Dr. Marquis Craven at [facility] in [place]. She is a G3, P2 at 35 weeks by stated EDC of 07/09/2019. She presents complaining of midline lower abdominal pain. No rupture of membranes. No bleeding. No contractions and dysuria. She reports that she has had UTI previously in . [employer] HISTORY: x2. History of preeclampsia. Blood type B positive, antibody negative, HIV negative, 50 g within normal limits. Urine culture negative. Group B strep culture positive. MEDICAL HISTORY: Denies. SURGICAL HISTORY: None. ALLERGIES: PENICILLIN. OF NOTE, THE PATIENT HAS TAKEN KEFLEX DURING THIS WITHOUT ALLERGIC REACTION. MEDICATIONS: vitamins. SOCIAL HISTORY: Denies tobacco, alcohol, or drug use. FAMILY HISTORY: Noncontributory. REVIEW OF SYSTEMS: Noncontributory. PHYSICAL EXAMINATION: VITAL SIGNS: Temperature 98.8, blood pressure 110/72, pulse 85, respirations 18. HEENT: Within normal limits. LUNGS: Clear to auscultation bilaterally. HEART: Regular rate and rhythm. ABDOMEN: Soft and nontender with no palpable contractions. FHTs 140s. PELVIC: Without lesions. VAGINAL: Deferred. NEUROLOGIC: No CVA tenderness noted. EXTREMITIES: No clubbing, cyanosis, or edema. Prolonged monitoring is carried out. The patient had baseline of 130s to 140s, positive accelerations, no decelerations, no contractions noted. Fem-cath UA revealed positive leukocyte esterase, positive wbc's, positive bacteria. IMPRESSION: Uncomplicated urinary tract infection, third trimester. PLAN: 1. Culture sent. 2. Rocephin 1 g IM. 3. Follow up Dr. Craven at [facility] within the week. ER precautions given to the patient. Job ID: [id number]
== END 2019-06-06 16:15 | disposition home or self-care (01) ==
LOC: L&D/OP 12:29
PROVIDERS: ATTEND Family Medicine
DX: O23.43 Unspecified infection of urinary tract in pregnancy, third trimester (principal); Z87.59 Personal history of other complications of pregnancy, childbirth and the puerperium; Z88.0 Allergy status to penicillin; Z91.041 Radiographic dye allergy status; Z3A.35 35 weeks gestation of pregnancy
CPT/HCPCS: 81001; 87086; 96360; 96361; 96372; 99283; J0696

== ENCOUNTER 2019-06-14 22:42 | Day surgery (SDC) | payer OTHER ==
[2019-06-14 23:14] VITALS: BMI 28.6
[2019-06-14 23:15] VITALS: BP 123/75; TEMP 98.4
[2019-06-14] MEDS ORDERED: hydrALAZINE 20 MG/ML VIAL SLOW IVP PRN (23:53)
--- NOTE | 2019-06-14 23:57 | PDOC.LDHP ---
Labor and Delivery H&P Chief complaint: abdominal pain HPI: Patient of Dr Craven Time: [id number] Location: L&D Triage CC: midepigastric discomfort HPI: 23 yo at 36 weeks 3 days with midepigastric discomfort with no real radiation. Seen recently with same and given "ABX". Also with some c/o urinary frequency but no dysuria. No fevers, no VB, no LOF, no real CTX discomforts. Seen in office last week and was 3cm. Review of Systems: complete ROS completed and as per HPI Current gestational age (weeks): 36 (3 days) Due date: 07/09/19 Dating criteria: last menstrual period Grav: 3 Para: 2 OB History Details: No CS HX HX Preeclampsia Past Medical History: HX chronic HAs, asthma, CHTN Current medications: pre- vitamins, other (baby asa) Previous surgical history: cholecystectomy Allergies/Adverse Reactions: Allergies Allergy/AdvReac Type Severity Reaction Status Date / Time Iodine and Iodide Containing Allergy Severe Short of Verified 06/14/19 23:08 Produc Breath Penicillins Allergy Severe Swollen Verified 06/14/19 23:08 Lips Social history: none - Physical Exam Vital signs reviewed and normal: yes (125/75 80 18 100%) General: NAD Heart: RRR Lungs: CTAB Abdomen: gravid Extremeties: no edema FHT: category 1 [place] contractions every: irritability - Vaginal Exam cm dilated: 3 Effacement: 75% Station: -1 - Assessment Abdominal pain at 36 weeks 3 days with CX same as last week.Some urinary frequency. - Plan Plan: observation in L&D (I have orderd a CMP and cath UA. I will order a RUQ sono. Pain sounds like discomforts of but I will r/o other etiologies prior to final disposition. CX unchanged so I do not suspect labor at this time.)
[2019-06-15 00:08] LABS: Bacteria/HPF None Seen HPF (None Seen); Bilirubin Negative (Negative); Blood, Urine Negative (Negative); Clarity Clear (Clear); Glucose, Urine (Dipstick) Normal (Negative); Leukocyte Negative Leu/uL (Negative); Nitrite Negative (Negative); Protein, Urine (Dipstick) Negative (Neg-Trace); RBC/HPF None Seen HPF (0-3); Squamous Epithelial 0-3 HPF (0-3); Urobilinogen Normal mg/dL (Less than 2); WBC/HPF 0-3 HPF (0-3)
[2019-06-15 00:11] LABS: Urine Culture Reflex No No
--- NOTE | 2019-06-15 00:21 | PDOC.EVN ---
Event Note - Event Note Event Note: Addendum to H&P record states GBS pos by PARUL...but culture not done. States PCN "allergy"...no sensitivities fond in chart for clinda/erythro. We will give VANC as sensitivities not known...if she labors. I have cancelled the RUQ sono due to HX cholecystectomy. Urine without evidence infection
[2019-06-15 00:39] LABS: ALT (SGPT) 10 U/L (8-55); AST (SGOT) 23 U/L (5-34); Albumin 3.6 g/dL (3.5-5.0); Alkaline Phosphatase 139 U/L (40-150); Anion Gap 12 mmol/L (10-20); BUN (Urea Nitrogen) 7 mg/dL (7.0-18.7); Bilirubin, Total 0.7 mg/dL (0.2-1.2); Calc. Creatinine Clearance 187 mL/min (70-130); Calcium 9.2 mg/dL (7.8-10.44); Carbon Dioxide 21 mmol/L (22-29); Chloride 102 mmol/L (98-107); Estimated GFR-MDRD Greater than 90; Globulin 3.4 g/dL (2.4-3.5); Glucose 65 mg/dL (70-105); Potassium 3.2 mmol/L (3.5-5.1); Sodium 132 mmol/L (136-145)
--- NOTE | 2019-06-15 01:12 | PDOC.EVN ---
Event Note - Event Note Event Note: Labs ok OK for discharge Recheck of CX same F/U in 24 hours with Herber
== END 2019-06-15 01:20 | disposition home or self-care (01) ==
LOC: L&D/OP 22:42
PROVIDERS: ATTEND Family Medicine
DX: O99.89 Other specified diseases and conditions complicating pregnancy, childbirth and the puerperium (principal); R10.13 Epigastric pain; O10.013 Pre-existing essential hypertension complicating pregnancy, third trimester; O99.52 Diseases of the respiratory system complicating childbirth; J45.909 Unspecified asthma, uncomplicated; Z3A.36 36 weeks gestation of pregnancy; Z79.82 Long term (current) use of aspirin; Z88.0 Allergy status to penicillin; Z91.041 Radiographic dye allergy status
CPT/HCPCS: 51701; 80053; 81001; 99283

== ENCOUNTER 2019-06-15 21:59 | Day surgery (SDC) | payer OTHER ==
[2019-06-15 22:28] VITALS: BP 135/81; TEMP 98; BMI 28.6
--- NOTE | 2019-06-16 00:33 | PRG ---
DATE OF SERVICE: 06/15/2019 PRIMARY OB: Omar Craven MD CHIEF COMPLAINT: Abdominal pains. HISTORY OF PRESENT ILLNESS: The patient is a 23-year-old, G3, P2 female with an intrauterine at 36 weeks and 4 days, who is presenting to Labor and Delivery after drinking a bottle of castor oil in an attempt to get herself in labor. The patient has been experiencing abdominal pains and uterine contractions for the last several days and reports that she is tired of hurting and was trying to get herself in the labor. The patient reports that she is having a lot of abdominal cramping and diarrhea. Denies vaginal bleeding or leakage of fluid. Denies any fever, fall, headache, chest pain, shortness of breath, nausea, vomiting, any new rashes, hip problems, knee problems, muscle weakness, vaginal bleeding, leakage of fluid, urinary urgency or frequency. PAST MEDICAL HISTORY: Chronic headaches, asthma, and chronic hypertension. PAST SURGICAL HISTORY: She has had a tonsillectomy, adenoidectomy, cholecystectomy, and D and C. ALLERGIES: IODINE AND PENICILLINS. MEDICATIONS: vitamins. SOCIAL HISTORY: Denies drug, alcohol, or tobacco use. OB HISTORY: She has had two spontaneous vaginal deliveries, one at 36 weeks. The patient has a blood type B positive. Antibody screen is negative. HIV is negative. She had a normal Glucola and is group B strep positive. REVIEW OF SYSTEMS: The patient denies any recent fever, fall, headache, chest pain, shortness of breath, nausea, or vomiting. The patient has had diarrhea. Denies constipation. Denies any new rashes, hip problems, knee problems, muscle weakness, vaginal bleeding, leakage of fluid, urinary urgency or frequency. PHYSICAL EXAMINATION: VITAL SIGNS: Blood pressure 122/70, heart rate of 75, respiratory rate of 18, saturating 100% on room air, temperature 98.0. GENERAL: She appears to be in no acute distress. She is alert and oriented, cooperative, and pleasant to interact with. HEAD: Normocephalic, atraumatic. LUNGS: Clear to auscultation bilaterally. HEART: Regular rate and rhythm. ABDOMEN: Gravid, soft. She does have some normoactive bowel sounds. Baby is quite active and moving. EXTREMITIES: Nontender, nonedematous. Cervical exam, she is 375% effaced, -2 station per nursing staff, which is unchanged over the last 24 hours. heart tracing shows the fetus with baseline in the 150s with moderate long-term variability, positive 15 x 15 accelerations, no decelerations. Tocometer showing irritability, but no contraction pattern. ASSESSMENT AND PLAN: The patient is a 23-year-old female with an intrauterine at 36 weeks and 4 days, now status post a bottle of castor oil. The patient is likely experiencing abdominal cramping due to the bottle of castor oil that she is taking. The uterine contractions that she may be experiencing " brain picker not" and cause any significant change in her cervix over the last 24 hours. The patient will remain here for a couple hours for re-evaluation. Should she continue to make no change, patient will be discharged to home. She is GBS positive. Fetus has a category 1 tracing and reactive NST. She has been offered pain medication , but she has declined. Addendum: no cervical change after two hours. Pt discharged home with precautions. Job ID: [id number] [facility]
[2019-06-16] MEDS ORDERED: hydrALAZINE 20 MG/ML VIAL SLOW IVP PRN (00:59)
[2019-06-16] MEDS ORDERED: Morphine 4 MG/ML VIAL IM SCH (01:00)
[2019-06-16] MEDS ORDERED: Morphine 4 MG/ML VIAL SLOW IVP SCH (01:00)
== END 2019-06-16 01:35 | disposition home or self-care (01) ==
LOC: L&D/OP 21:59
PROVIDERS: ATTEND Family Medicine
DX: O99.89 Other specified diseases and conditions complicating pregnancy, childbirth and the puerperium (principal); R10.9 Unspecified abdominal pain; R19.7 Diarrhea, unspecified; O99.513 Diseases of the respiratory system complicating pregnancy, third trimester; J45.909 Unspecified asthma, uncomplicated; O10.913 Unspecified pre-existing hypertension complicating pregnancy, third trimester; Z91.041 Radiographic dye allergy status; Z88.0 Allergy status to penicillin; Z79.82 Long term (current) use of aspirin; Z79.899 Other long term (current) drug therapy; Z3A.36 36 weeks gestation of pregnancy
CPT/HCPCS: 59025; 96372; 99283; J2270

== ENCOUNTER 2019-06-20 20:35 | Day surgery (SDC) | payer OTHER ==
[2019-06-20 21:01] VITALS: BP 126/78; TEMP 98; BMI 28.6
[2019-06-21] MEDS ORDERED: hydrALAZINE 20 MG/ML VIAL SLOW IVP PRN (07:40)
--- NOTE | 2019-06-21 09:37 | PRG ---
DATE OF SERVICE: 06/20/2019 PRIMARY OB: Omar Craven MD CHIEF COMPLAINT: Abdominal pain. HISTORY OF PRESENT ILLNESS: The patient is a 23-year-old, G3, P2 female with an intrauterine at 37 weeks gestation, presenting to Labor and Delivery with worsening uterine contractions since 11 o'clock this morning. She states that her Primary OB swept her membranes the morning of presentation at a routine office visit and stated that she was 3.5 cm at that time. She reports that she thinks her contractions are been about every 10 minutes. She denies any vaginal bleeding or leakage of fluid. She denies any fever, fall, chest pain, shortness of breath, nausea, vomiting, diarrhea, hip problems, knee problems, muscle weakness, new rashes, vaginal bleeding, or leakage of fluid. She has had a mucousy discharge. Denies urinary urgency or frequency. Positive findings for constipation, blurry vision, and intermittent headache. PAST MEDICAL HISTORY: Chronic hypertension, asthma. PAST SURGICAL HISTORY: Tonsillectomy, adenoidectomy, cholecystectomy, D and C in 2016. ALLERGIES: IODINE AND PENICILLIN. MEDICATIONS: vitamins. SOCIAL HISTORY: Denies drug, alcohol, or tobacco use. OB HISTORY: She has had 2 prior spontaneous vaginal deliveries, diagnosed preeclampsia with both of those deliveries. OB LABS: Blood type is B positive. Antibody screen is negative. HIV is negative and she is GBS positive. REVIEW OF SYSTEMS: Per HPI. PHYSICAL EXAMINATION: VITAL SIGNS: Blood pressure is 126/78, temperature 98.0, pulse 93, respiratory rate 18, saturating 99% on room air. GENERAL: She appears to be in no acute distress. She is alert, oriented, cooperative, and pleasant to interact with. HEENT: Head is normocephalic and atraumatic. LUNGS: Clear to auscultation bilaterally. HEART: Regular rate and rhythm. ABDOMEN: Gravid and soft. She does have some tenderness with palpation in deviation of the uterus. EXTREMITIES: Nontender and nonedematous. She has 2+ DTRs. CERVICAL: The patient is 4, 75, and -2 station. After nearly 3 hours, the patient has remained unchanged at 4, 75, -2 station. heart tracing shows the fetus with a baseline in the 140s with moderate long-term variability, positive accelerations, no decelerations. Tocometer showing some irritability, but no consistent contraction pattern. ASSESSMENT AND PLAN: The patient is a 23-year-old, G3, P2 female with an intrauterine at 37 weeks gestation, here for uterine contractions. There is no evidence of active labor at this time. The patient has declined any kind of pain medication to help with her pains. She will be discharged home with labor precautions. Fetus has a category 1 tracing and reactive NST. The patient is GBS positive. The patient has been counseled to follow up with her primary OB as scheduled. Job ID[facility] [id number] [facility]
== END 2019-06-20 23:55 | disposition home or self-care (01) ==
LOC: L&D/OP 20:35
PROVIDERS: ATTEND Family Medicine
DX: O47.1 False labor at or after 37 completed weeks of gestation (principal); O99.89 Other specified diseases and conditions complicating pregnancy, childbirth and the puerperium; N89.8 Other specified noninflammatory disorders of vagina; H53.8 Other visual disturbances; R51 Headache; O10.913 Unspecified pre-existing hypertension complicating pregnancy, third trimester; O99.513 Diseases of the respiratory system complicating pregnancy, third trimester; J45.909 Unspecified asthma, uncomplicated; Z88.0 Allergy status to penicillin; Z91.041 Radiographic dye allergy status; Z3A.37 37 weeks gestation of pregnancy
CPT/HCPCS: 99283

== ENCOUNTER 2019-06-23 11:15 | Inpatient (IN) | payer OTHER ==
[2019-06-23] MEDS ORDERED: Promethazine HCl 25 MG/ML VIAL IM PRN ×3 (12:05→17:48)
[2019-06-23] MEDS ORDERED: hydrALAZINE 20 MG/ML VIAL SLOW IVP PRN ×2 (12:05→17:48)
[2019-06-23] MEDS ORDERED: Ondansetron PF 4 MG/2 ML Vial IVP PRN ×3 (12:05→17:48)
[2019-06-23] MEDS ORDERED: Butorphanol Tartrate 1 MG/ML VIAL SLOW IVP PRN (12:05)
[2019-06-23] MEDS ORDERED: Lidocaine 1% (PF) 30 ML VIAL SC PRN ×2 (12:05→12:08)
[2019-06-23] MEDS ORDERED: NS / Oxytocin 40 units/1000ml 1,000 ML IV PRN (12:05)
[2019-06-23] MEDS ORDERED: Misoprostol 200 MCG TAB PR PRN (12:08)
[2019-06-23] MEDS ORDERED: HYDROcodone/Acetaminophen 5/325 mg Tablet PO PRN (12:08)
[2019-06-23] MEDS ORDERED: Ibuprofen 800 MG TAB PO PRN (12:08)
[2019-06-23] MEDS ORDERED: Diphenoxylate HCl/Atropine Tablet PO PRN (12:08)
[2019-06-23] MEDS ORDERED: Carboprost 250 MCG/ML AMP IM PRN (12:08)
[2019-06-23] MEDS ORDERED: Methylergonovine 0.2 MG/ML VIAL IM PRN (12:08)
[2019-06-23] MEDS ORDERED: Lactated Ringer's 1,000 ML IV SCH (12:15)
[2019-06-23] MEDS ORDERED: NS w/ Oxytocin 10 units 500 ML IV SCH ×2 (12:15)
[2019-06-23] MEDS ORDERED: Vancomycin HCl 1 GM in Premix Bag 1 BAG IVPB SCH (12:15)
[2019-06-23 12:37] VITALS: BMI 28.1
[2019-06-23 12:43] LABS: Hemoglobin 8.7 g/dL (12.0-16.0); Mean Corpuscular HGB CONC 33.3 g/dL (32.0-36.0); Mean Corpuscular Hemoglobin 24.1 pg (27.0-31.0); Mean Corpuscular Volume 72.4 fL (78.0-98.0); Mean Platelet Volume 10.2 fL (7.4-10.4); Platelet Count 207 thou/uL (130-400); RBC Distribution Width 14.3 % (11.5-14.5); Red Blood Cell (RBC) Count 3.62 mill/uL (4.20-5.40); White Blood Cell (WBC) Count 7.8 thou/uL (4.8-10.8)
[2019-06-23 13:22] LABS: HBSAg Index 0.33 S/CO (0-0.99); Hep B Surf Ag Non-Reactive S/CO (NonReactive); Syphilis Antibody Nonreactive (Nonreactive); Syphilis Antibody Index 0.07 S/CO (<1.00 Non-Reactive)
[2019-06-23] MEDS ORDERED: Fentanyl 4 mcg/Bup 0.1% Cadd 100 ML ONE (13:59)
[2019-06-23] MEDS ORDERED: Acetaminophen 325 MG TAB PO PRN (14:44)
[2019-06-23] MEDS ORDERED: ePHEDrine/0.9% NaCl/PF SYRINGE 50 mg/10 ml SLOW IVP PRN (14:44)
[2019-06-23] MEDS ORDERED: Naloxone HCl 0.4 mg/ml Vial IVP PRN ×2 (14:44)
[2019-06-23] MEDS ORDERED: diphenhydrAMINE 50 MG/ML VIAL IVP PRN (14:44)
[2019-06-23] MEDS ORDERED: Lactated Ringer's 500 ML IV PRN (14:44)
[2019-06-23] MEDS ORDERED: Communication Order-Pharmacy FS SCH (14:45)
[2019-06-23] MEDS ORDERED: Fentanyl 4 mcg/Bupivacaine 0.1% Cassette 100 ML EPIDURAL SCH (14:45)
[2019-06-23] MEDS ORDERED: Lidocaine 1% (PF) 30 ML VIAL ONE (14:49)
[2019-06-23] MEDS ORDERED: NS / Oxytocin 40 units/1000ml 1,000 ML ONE (14:49)
[2019-06-23] MEDS ORDERED: Bisacodyl 10 MG SUPP PR PRN (17:48)
[2019-06-23] MEDS ORDERED: Milk Of Magnesia 30 ML UDCUP PO PRN (17:48)
[2019-06-23] MEDS ORDERED: Benzocaine-Menthol 82.5 ML CAN TOP PRN (17:48)
[2019-06-23] MEDS ORDERED: diphenhydrAMINE 25 MG CAP PO PRN (17:48)
[2019-06-23] MEDS ORDERED: NS / Oxytocin 40 units/1000ml 1,000 ML IV SCH (17:48)
[2019-06-23] MEDS ORDERED: Bupivacaine/Epinephrine 0.25% 30 ML VIAL ONE (18:00)
[2019-06-23] MEDS ORDERED: Lidocaine 2% MPF 10 ML AMP (For Epidural Use) ONE (18:00)
[2019-06-23] MEDS: Docusate Calcium (SURFAK) 240 MG CAP PO SCH (20:12)
[2019-06-23] MEDS: Ibuprofen 800 MG TAB PO SCH (20:13)
[2019-06-23] MEDS: HYDROcodone/Acetaminophen 5/325 mg Tablet PO PRN (22:56)
[2019-06-24 05:42] LABS: #Basophils 0.1 thou/uL (0.0-0.2); #Eosinphils 0.2 thou/uL (0.0-0.7); #Lymphocytes 2.7 thou/uL (1.20-3.40); #Monocytes 0.8 thou/uL (0.11-0.59); #Neutrophils 8.9 thou/uL (1.40-6.50); %Basophils 0.4 % (0.0-1.0); %Eosinophils 1.4 % (0.0-10.0); %Lymphocytes 21.4 % (21.0-51.0); %Monocytes 6.4 % (0.0-10.0); %Neutrophils 70.5 % (42.0-75.0); Hemoglobin 7.6 g/dL (12.0-16.0); Mean Corpuscular HGB CONC 30.9 g/dL (32.0-36.0); Mean Corpuscular Hemoglobin 23.1 pg (27.0-31.0); Mean Corpuscular Volume 74.6 fL (78.0-98.0); Mean Platelet Volume 9.7 fL (7.4-10.4); Platelet Count 178 thou/uL (130-400); RBC Distribution Width 14.2 % (11.5-14.5); Red Blood Cell (RBC) Count 3.27 mill/uL (4.20-5.40); White Blood Cell (WBC) Count 12.6 thou/uL (4.8-10.8)
[2019-06-24] MEDS: Ibuprofen 800 MG TAB PO SCH ×3 (06:29→21:30)
[2019-06-24] MEDS: Prenatal Vitamin 1 TAB PO SCH (08:32)
[2019-06-24] MEDS: Docusate Calcium (SURFAK) 240 MG CAP PO SCH ×2 (08:32→21:30)
[2019-06-24] MEDS: Ferrous Sulfate 325 MG TAB PO SCH ×2 (08:32→16:48)
[2019-06-24] MEDS: HYDROcodone/Acetaminophen 5/325 mg Tablet PO PRN ×2 (13:44→21:30)
[2019-06-24] MEDS ORDERED: cloNIDine 0.1 MG TAB PO PRN (16:11)
[2019-06-24] MEDS ORDERED: Adacel (T-DAP) 0.5 ML SYRINGE IM ONE (17:48)
[2019-06-25] MEDS: Ibuprofen 800 MG TAB PO SCH ×2 (06:24→14:09)
[2019-06-25] MEDS: Prenatal Vitamin 1 TAB PO SCH (09:03)
[2019-06-25] MEDS: Ferrous Sulfate 325 MG TAB PO SCH ×2 (09:03→17:58)
[2019-06-25] MEDS: Docusate Calcium (SURFAK) 240 MG CAP PO SCH (09:03)
[2019-06-25] MEDS: HYDROcodone/Acetaminophen 5/325 mg Tablet PO PRN ×2 (10:16→17:59)
[2019-06-25 12:55] VITALS: BP 132/81; TEMP 98.4
== END 2019-06-25 18:05 | disposition home or self-care (01) | DRG 807 ==
LOC: L&D 11:36 → 3SW 18:21
PROVIDERS: ADMIT Family Medicine; ATTEND Family Medicine
PROC: 10907ZC Drainage of Amniotic Fluid, Therapeutic from Products of Conception, Via Natural or Artificial Opening (ICD-10-PCS; principal; 2019-06-23)
PROC: 10E0XZZ Delivery of Products of Conception, External Approach (ICD-10-PCS; 2019-06-23)
DX: O13.4 Gestational [pregnancy-induced] hypertension without significant proteinuria, complicating childbirth (principal); Z37.0 Single live birth; O99.824 Streptococcus B carrier state complicating childbirth; Z3A.37 37 weeks gestation of pregnancy; O14.94 Unspecified pre-eclampsia, complicating childbirth
CPT/HCPCS: 36415; 85025; 85027; 86780; 86850; 86900; 86901; 87340; J2001; J2590; J3370; Q0163

== ENCOUNTER 2019-08-16 08:20 | Emergency (ER) | payer OTHER ==
[2019-08-16 08:55] LABS: Bilirubin Negative (Negative); Blood, Urine Negative (Negative); Clarity Turbid (Clear); Glucose, Urine (Dipstick) Normal (Negative); Leukocyte 500 Leu/uL (Negative); Mucous/LPF Rare LPF (<2+); Nitrite Negative (Negative); Protein, Urine (Dipstick) 10 mg/dL (Neg-Trace); Squamous Epithelial 21-50 HPF (0-3); Urobilinogen Normal mg/dL (Less than 2)
[2019-08-16 09:07] LABS: RBC/HPF 0-3 HPF (0-3)
[2019-08-16 09:08] LABS: Bacteria/HPF 2+ HPF (None Seen)
[2019-08-16 09:42] LABS: Band 2 % (5-11); Eosinophils 6 % (0-10); Hemoglobin 10.5 g/dL (12.0-16.0); Hypochromia SLIGHT = 6-15 cells (100X) (0-5/hpf); Lymphocytes 60 % (21-51); MDiff Complete? YES; Mean Corpuscular Hemoglobin 23.6 pg (27.0-31.0); Mean Corpuscular Volume 71.6 fL (78.0-98.0); Mean Platelet Volume 11.8 fL (7.4-10.4); Microcytosis MODERATE=15-30 cells (100X) (0-5/hpf); Monocytes 4 % (0-10); Neutrophil 28 % (42-75); Ovalocytes SLIGHT = 2-5 cells (100X) (0-1/hpf); Platelet Count 188 thou/uL (130-400); Platelet Morphology Comment Appears Adequate; Polychromasia SLIGHT = 2-3 cells (100X) (0-2/hpf); RBC Distribution Width 16.8 % (11.5-14.5); Red Blood Cell (RBC) Count 4.45 mill/uL (4.20-5.40); White Blood Cell (WBC) Count 4.8 thou/uL (4.8-10.8)
[2019-08-16 09:56] LABS: ALT (SGPT) 28 U/L (8-55); AST (SGOT) 29 U/L (5-34); Alkaline Phosphatase 71 U/L (40-110); Anion Gap 11 mmol/L (10-20); BUN (Urea Nitrogen) 7 mg/dL (7.0-18.7); Bilirubin, Total 0.6 mg/dL (0.2-1.2); Calc. Creatinine Clearance 0 mL/min (70-130); Calcium 9.2 mg/dL (7.8-10.44); Carbon Dioxide 22 mmol/L (22-29); Chloride 109 mmol/L (98-107); Estimated GFR-MDRD Greater than 90; Glucose 80 mg/dL (70-105); Lipase 21 U/L (8-78); Potassium 3.6 mmol/L (3.5-5.1); Sodium 138 mmol/L (136-145)
[2019-08-16] MEDS ORDERED: Ketorolac Tromethamine 30 MG/ML VIAL ONE (10:19)
== END 2019-08-16 12:01 | disposition home or self-care (01) ==
LOC: ERS 08:20
DX: N39.0 Urinary tract infection, site not specified (principal); J45.909 Unspecified asthma, uncomplicated; Z87.891 Personal history of nicotine dependence
CPT/HCPCS: 36415; 80053; 81003; 81015; 83690; 85025; 96361; 96374; J1885

== ENCOUNTER 2019-08-26 15:45 | Outpatient (CLI) | payer OTHER ==
--- NOTE | 2019-08-26 16:32 | ULT ---
ULTRASOUND PELVIC ULTRASOUND TRANSVAGINAL DOPPLER DUPLEX: DATE: 08/26/2019 HISTORY: 23-year-old female with pelvic pain TECHNIQUE: Transabdominal transducer and endovaginal transducer used to visualize intrapelvic contents with washburn scale, color-flow, and spectral analysis. FINDINGS: Uterus: 8 x 4.5 x 6.5 cm. Endometrial stripe: 0.8 cm (8 mm) Right ovary: 5.2 x 5.1 x 5.7 cm. Blood flow demonstrated. There is a well-circumscribed, nonlobulated 5.6 x 5.3 x 3.9 cm mass dominating and expanding the righ t ovary. This mass has diffusely slightly heterogeneously low echogenicity, interspersed with numerous thin septations, and a few thick septations, and large number of tiny focal echoes. This was not present on the ultrasound of 07/10/2019. Free fluid: Small amount in the cul-de-sac adjacent to the cervix. Left ovary: Not visualized. IMPRESSION: Large, 5.6 cm, complex, hemorrhagic right ovarian cyst.
== END 2019-08-26 15:46 | disposition home or self-care (01) ==
LOC: BICULT 15:45
PROVIDERS: ATTEND Nurse Practitioner Family
DX: R10.2 Pelvic and perineal pain (principal); N83.201 Unspecified ovarian cyst, right side
CPT/HCPCS: 76856

== ENCOUNTER 2019-09-13 08:58 | Emergency (ER) | payer OTHER ==
[2019-09-13 09:16] LABS: Bilirubin Negative (Negative); Blood, Urine Negative (Negative); Clarity Clear (Clear); Glucose, Urine (Dipstick) Normal (Negative); Leukocyte Negative Leu/uL (Negative); Nitrite Negative (Negative); Protein, Urine (Dipstick) 20 mg/dL (Neg-Trace)
[2019-09-13 09:20] LABS: Pregnancy Test - Urine (BHCG) Negative (Negative); Pregu Control Background? CLEAR/WHITE (CLR/WHITE); Pregu Control Bar Appear? YES (CONTROL BAR); Specific Gravity 1.033 (1.002-1.036)
[2019-09-13 09:27] LABS: Mean Corpuscular HGB CONC 31.5 g/dL (32.0-36.0); Mean Corpuscular Hemoglobin 22.9 pg (27.0-31.0); Mean Corpuscular Volume 72.8 fL (78.0-98.0); Platelet Count 220 thou/uL (130-400); RBC Distribution Width 16.9 % (11.5-14.5); Red Blood Cell (RBC) Count 4.78 mill/uL (4.20-5.40)
[2019-09-13 09:39] LABS: ALT (SGPT) 16 U/L (8-55); AST (SGOT) 18 U/L (5-34); Albumin 4.7 g/dL (3.5-5.0); Alkaline Phosphatase 76 U/L (40-110); Anion Gap 11 mmol/L (10-20); BUN (Urea Nitrogen) 12 mg/dL (7.0-18.7); Bilirubin, Total 0.7 mg/dL (0.2-1.2); Calc. Creatinine Clearance 0 mL/min (70-130); Calcium 9.6 mg/dL (7.8-10.44); Carbon Dioxide 24 mmol/L (22-29); Chloride 104 mmol/L (98-107); Estimated GFR-MDRD Greater than 90; Globulin 3.4 g/dL (2.4-3.5); Glucose 83 mg/dL (70-105); Lipase 31 U/L (8-78); Potassium 3.2 mmol/L (3.5-5.1); Protein, Total 8.1 g/dL (6.0-8.3); Sodium 136 mmol/L (136-145)
[2019-09-13 09:58] LABS: Eosinophils 7 % (0-10); Hypochromia SLIGHT = 6-15 cells (100X) (0-5/hpf); Lymphocytes 53 % (21-51); MDiff Complete? YES; Microcytosis SLIGHT = 6-15 cells (100X) (0-5/hpf); Monocytes 5 % (0-10); Neutrophil 35 % (42-75); Ovalocytes SLIGHT = 2-5 cells (100X) (0-1/hpf); Platelet Morphology Comment Appears Adequate; Polychromasia SLIGHT = 2-3 cells (100X) (0-2/hpf)
--- NOTE | 2019-09-13 12:05 | ULT ---
US Pelvic Transvag W Doppler History: Pelvic pain Comparison: Pelvic ultrasound August 26, 2019 Findings: Real-time grayscale, color, and spectral analysis of the pelvis was performed transabdomina l approach. The images thickness measures 5 mm. Uterus measures 9.5 x 3.9 x 5.6 m. Left ovary is not seen. No significant free fluid in the pelvis. The right ovary is enlarged measuring 5.6 x 5.3 x 4.2 cm with a 4.4 cm cyst. This cyst is complex wit h layering hemorrhage as well as a thick internal septation. Impression: Similar appearance of the complex cyst in the right ovary. Given that it is new from [facility] and there appears be a fluid hematocrit level, along with the history, resolving hemorrhagic cyst is still felt most likely. Follow-up pelvic ultrasound in 6 weeks recommended.
== END 2019-09-13 12:29 | disposition home or self-care (01) ==
LOC: ERS 08:58
DX: N83.201 Unspecified ovarian cyst, right side (principal); I10 Essential (primary) hypertension; J45.909 Unspecified asthma, uncomplicated
CPT/HCPCS: 36415; 76856; 80053; 81003; 81025; 83690; 85025

== ENCOUNTER 2019-12-25 09:42 | Emergency (ER) | payer OTHER ==
--- NOTE | 2019-12-25 10:28 | RAD ---
EXAM: Portable chest PROVIDED CLINICAL HISTORY: Chest pain COMPARISON: 12/31/2016 FINDINGS: Cardiac and mediastinal silhouette is within normal limits. No focal consolidation, pleural fluid or pneumothorax evident. IMPRESSION: No evidence for an acute cardiopulmonary process.
[2019-12-25 10:57] LABS: Bilirubin Negative (Negative); Blood, Urine Negative (Negative); Glucose, Urine (Dipstick) Negative (Negative); Leukocyte Negative (Negative); Nitrite Negative (Negative); Protein, Urine (Dipstick) Negative (Neg-Trace); Urobilinogen 0.2 mg/dL (Less than 2)
[2019-12-25 10:58] LABS: Clarity Clear (Clear)
[2019-12-25 11:15] LABS: Hemoglobin 11.6 g/dL (12.0-16.0); Mean Corpuscular HGB CONC 31.7 g/dL (32.0-36.0); Mean Corpuscular Volume 79.1 fL (78.0-98.0); Mean Platelet Volume 9.9 fL (7.4-10.4); Platelet Count 200 thou/uL (130-400); RBC Distribution Width 13.6 % (11.5-14.5); Red Blood Cell (RBC) Count 4.63 mill/uL (4.20-5.40); White Blood Cell (WBC) Count 4.1 thou/uL (4.8-10.8)
[2019-12-25 11:23] LABS: BHCG - Serum Negative (NEGATIVE); Pregs Control Background? CLEAR/WHITE (CLR/WHITE); Pregs Control Bar Appear? YES (CONTROL BAR)
[2019-12-25 11:34] LABS: ALT (SGPT) 9 U/L (8-55); AST (SGOT) 16 U/L (5-34); Albumin 4.4 g/dL (3.5-5.0); Alkaline Phosphatase 65 U/L (40-110); Anion Gap 10 mmol/L (10-20); BUN (Urea Nitrogen) 9 mg/dL (7.0-18.7); Bilirubin, Total 1.1 mg/dL (0.2-1.2); Calc. Creatinine Clearance 0 mL/min (70-130); Calcium 9.7 mg/dL (7.8-10.44); Carbon Dioxide 25 mmol/L (22-29); Chloride 106 mmol/L (98-107); Estimated GFR-MDRD Greater than 90; Globulin 3.3 g/dL (2.4-3.5); Glucose 78 mg/dL (70-105); Potassium 3.9 mmol/L (3.5-5.1); Protein, Total 7.7 g/dL (6.0-8.3); Sodium 137 mmol/L (136-145)
[2019-12-25 11:35] LABS: Eosinophils 8 % (0-10); Lymphocytes 50 % (21-51); MDiff Complete? YES; Monocytes 1 % (0-10); Neutrophil 33 % (42-75); Platelet Morphology Comment Appears Adequate; Reactive Lymphocytes 7 % (0-10)
[2019-12-25] MEDS ORDERED: Acetaminophen 500 MG TAB ONE (12:10)
== END 2019-12-25 13:15 | disposition home or self-care (01) ==
LOC: ERS 09:42
DX: N64.4 Mastodynia (principal); I10 Essential (primary) hypertension; J45.909 Unspecified asthma, uncomplicated
CPT/HCPCS: 36415; 71045; 80053; 81003; 84703; 85025

== ENCOUNTER → 2020-01-16 | Emergency (ER) | payer MEDICAID, SELFPAY ==
[2020-01-16 08:56] LABS: #Basophils 0.1 thou/uL (0.0-0.2); #Eosinphils 0.1 thou/uL (0.0-0.7); #Lymphocytes 2.8 thou/uL (1.20-3.40); #Monocytes 0.3 thou/uL (0.11-0.59); #Neutrophils 3.3 thou/uL (1.40-6.50); %Basophils 1.7 % (0.0-1.0); %Eosinophils 2.3 % (0.0-10.0); %Monocytes 4.4 % (0.0-10.0); %Neutrophils 49.6 % (42.0-75.0); Hemoglobin 12.1 g/dL (12.0-16.0); Mean Corpuscular HGB CONC 32.3 g/dL (32.0-36.0); Mean Corpuscular Volume 80.6 fL (78.0-98.0); Mean Platelet Volume 9.6 fL (7.4-10.4); Platelet Count 217 thou/uL (130-400); RBC Distribution Width 13.8 % (11.5-14.5); Red Blood Cell (RBC) Count 4.66 mill/uL (4.20-5.40); White Blood Cell (WBC) Count 6.6 thou/uL (4.8-10.8)
[2020-01-16 09:04] LABS: BHCG - Serum POSITIVE (NEGATIVE); Pregs Control Background? CLEAR/WHITE (CLR/WHITE); Pregs Control Bar Appear? YES (CONTROL BAR)
[2020-01-16 09:17] LABS: ALT (SGPT) 12 U/L (8-55); AST (SGOT) 16 U/L (5-34); Albumin 4.5 g/dL (3.5-5.0); Alkaline Phosphatase 68 U/L (40-110); Anion Gap 11 mmol/L (10-20); BUN (Urea Nitrogen) 10 mg/dL (7.0-18.7); Bilirubin, Total 0.8 mg/dL (0.2-1.2); Calc. Creatinine Clearance 0 mL/min (70-130); Calcium 9.5 mg/dL (7.8-10.44); Carbon Dioxide 22 mmol/L (22-29); Chloride 107 mmol/L (98-107); Estimated GFR-MDRD Greater than 90; Globulin 3.6 g/dL (2.4-3.5); Glucose 82 mg/dL (70-105); Lipase 25 U/L (8-78); Potassium 3.3 mmol/L (3.5-5.1); Protein, Total 8.1 g/dL (6.0-8.3); Sodium 137 mmol/L (136-145)
[2020-01-16 09:28] LABS: Bacteria/HPF 1+ HPF (None Seen); Bilirubin Negative (Negative); Blood, Urine Negative (Negative); Clarity Clear (Clear); Glucose, Urine (Dipstick) Normal (Negative); Leukocyte 250 Leu/uL (Negative); Nitrite Negative (Negative); Protein, Urine (Dipstick) 10 mg/dL (Neg-Trace); Urobilinogen Normal mg/dL (Less than 2); WBC/HPF 0-3 HPF (0-3)
--- NOTE | 2020-01-16 10:48 | ULT ---
TRANSABDOMINAL AND TRANSVAGINAL PELVIC ULTRASOUND WITH MORRIS SCALE AND COLOR FLOW AND SPECTRAL DOPPLER IMAGING: HISTORY: Abdominal pain and vaginal discharge. FINDINGS: The uterus measures 8.9 x 4.7 x 6.5 cm. There is a single intrauterine gestational sac with a diamete r of 0.46 cm and corresponding to an estimated gestational age of 5 weeks and 2 days. No yolk sac, fe nestor pole, or heart tones are identified. The right ovary measures 3.9 x 2.0 x 1.8 cm. The left ovary measures 2.9 x 2.0 x 2.1 cm. Flow is demo nstrated to both ovaries. There is a small amount of free fluid in the posterior cul-de-sac. IMPRESSION: Single intrauterine gestation of 5 weeks and 2 days estimated gestational age without pole, yol k sac, or heart tones. RECOMMENDATION: Correlation with serial serum beta HCG levels and follow-up ultrasound is recommended. POS: OFF
== END ==
LOC: ERS 08:09
DX: O99.89 Other specified diseases and conditions complicating pregnancy, childbirth and the puerperium (principal); R10.9 Unspecified abdominal pain; Z3A.01 Less than 8 weeks gestation of pregnancy
CPT/HCPCS: 36415; 76856; 80053; 81003; 81015; 83690; 84702; 84703; 85025; 86900; 86901

== ENCOUNTER → 2020-01-25 | Emergency (ER) | payer MEDICAID ==
[2020-01-25 11:35] LABS: #Basophils 0.1 thou/uL (0.0-0.2); #Eosinphils 0.1 thou/uL (0.0-0.7); #Lymphocytes 2.1 thou/uL (1.20-3.40); #Monocytes 0.5 thou/uL (0.11-0.59); #Neutrophils 5.1 thou/uL (1.40-6.50); %Basophils 0.8 % (0.0-1.0); %Eosinophils 1.7 % (0.0-10.0); %Lymphocytes 26.8 % (21.0-51.0); %Monocytes 6.3 % (0.0-10.0); %Neutrophils 64.4 % (42.0-75.0); Hemoglobin 11.7 g/dL (12.0-16.0); Mean Corpuscular HGB CONC 33.3 g/dL (32.0-36.0); Mean Corpuscular Hemoglobin 26.6 pg (27.0-31.0); Mean Corpuscular Volume 79.7 fL (78.0-98.0); Mean Platelet Volume 9.8 fL (7.4-10.4); Platelet Count 188 thou/uL (130-400); RBC Distribution Width 13.7 % (11.5-14.5); Red Blood Cell (RBC) Count 4.42 mill/uL (4.20-5.40); White Blood Cell (WBC) Count 7.9 thou/uL (4.8-10.8)
[2020-01-25 12:17] LABS: ALT (SGPT) 11 U/L (8-55); AST (SGOT) 14 U/L (5-34); Albumin 4.3 g/dL (3.5-5.0); Alkaline Phosphatase 62 U/L (40-110); Anion Gap 13 mmol/L (10-20); BUN (Urea Nitrogen) 7 mg/dL (7.0-18.7); Calc. Creatinine Clearance 0 mL/min (70-130); Calcium 9.6 mg/dL (7.8-10.44); Carbon Dioxide 23 mmol/L (22-29); Chloride 104 mmol/L (98-107); Estimated GFR-MDRD Greater than 90; Globulin 3.4 g/dL (2.4-3.5); Glucose 77 mg/dL (70-105); Lipase 18 U/L (8-78); Potassium 3.5 mmol/L (3.5-5.1); Protein, Total 7.7 g/dL (6.0-8.3); Sodium 136 mmol/L (136-145)
[2020-01-25 13:12] LABS: Bilirubin Negative (Negative); Blood, Urine Negative (Negative); Clarity Clear (Clear); Glucose, Urine (Dipstick) Normal (Negative); Leukocyte 250 Leu/uL (Negative); Nitrite Negative (Negative); Protein, Urine (Dipstick) 10 mg/dL (Neg-Trace); RBC/HPF 0-3 HPF (0-3); Urobilinogen Normal mg/dL (Less than 2)
[2020-01-25 13:22] LABS: Bacteria/HPF 2+ HPF (None Seen)
== END ==
LOC: ERS 11:04
DX: Z53.21 Procedure and treatment not carried out due to patient leaving prior to being seen by health care provider (principal)
CPT/HCPCS: 36415; 80053; 81003; 81015; 83690; 84702; 85025

== ENCOUNTER 2020-01-29 17:41 | Emergency (ER) | payer MEDICAID, OTHER ==
[2020-01-29 19:36] LABS: Bacteria/HPF None Seen HPF (None Seen); WBC/HPF 0-3 HPF (0-3)
[2020-01-29 19:37] LABS: Bilirubin Negative (Negative); Blood, Urine Negative (Negative); Clarity Clear (Clear); Glucose, Urine (Dipstick) Negative (Negative); Leukocyte Negative (Negative); Nitrite Negative (Negative); Protein, Urine (Dipstick) Negative (Neg-Trace)
[2020-01-29 19:40] LABS: Sperm/HPF None Seen HPF (None Seen)
[2020-01-29] MEDS ORDERED: Ondansetron ODT 4 MG TAB ONE (19:52)
== END 2020-01-29 20:16 | disposition home or self-care (01) ==
LOC: ERS 17:41
DX: O21.9 Vomiting of pregnancy, unspecified (principal); O99.89 Other specified diseases and conditions complicating pregnancy, childbirth and the puerperium; R10.30 Lower abdominal pain, unspecified; Z3A.01 Less than 8 weeks gestation of pregnancy
CPT/HCPCS: 81003; 87086; 99284; Q0162

== ENCOUNTER 2020-04-08 11:45 | Emergency (ER) | payer MEDICAID ==
[2020-04-08 12:33] LABS: #Basophils 0.1 thou/uL (0.0-0.2); #Eosinphils 0.2 thou/uL (0.0-0.7); #Lymphocytes 2.2 thou/uL (1.20-3.40); #Monocytes 0.4 thou/uL (0.11-0.59); #Neutrophils 2.6 thou/uL (1.40-6.50); %Basophils 1.3 % (0.0-1.0); %Eosinophils 3.8 % (0.0-10.0); %Lymphocytes 40.2 % (21.0-51.0); %Monocytes 7.7 % (0.0-10.0); Hemoglobin 11.3 g/dL (12.0-16.0); Mean Corpuscular Hemoglobin 27.4 pg (27.0-31.0); Mean Corpuscular Volume 82.9 fL (78.0-98.0); Mean Platelet Volume 9.3 fL (7.4-10.4); Platelet Count 205 thou/uL (130-400); RBC Distribution Width 12.8 % (11.5-14.5); Red Blood Cell (RBC) Count 4.12 mill/uL (4.20-5.40); White Blood Cell (WBC) Count 5.5 thou/uL (4.8-10.8)
[2020-04-08 12:41] LABS: ALT (SGPT) 8 U/L (8-55); AST (SGOT) 15 U/L (5-34); Albumin 3.8 g/dL (3.5-5.0); Alkaline Phosphatase 46 U/L (40-110); Anion Gap 12 mmol/L (10-20); BUN (Urea Nitrogen) 7 mg/dL (7.0-18.7); Bilirubin, Total 0.5 mg/dL (0.2-1.2); Calc. Creatinine Clearance 0 mL/min (70-130); Calcium 9.1 mg/dL (7.8-10.44); Carbon Dioxide 21 mmol/L (22-29); Chloride 105 mmol/L (98-107); Estimated GFR-MDRD Greater than 90; Globulin 3.5 g/dL (2.4-3.5); Glucose 73 mg/dL (70-105); Lipase 20 U/L (8-78); Potassium 3.6 mmol/L (3.5-5.1); Protein, Total 7.3 g/dL (6.0-8.3); Sodium 134 mmol/L (136-145)
[2020-04-08 12:56] LABS: Bilirubin Negative (Negative); Blood, Urine Negative (Negative); Clarity Clear (Clear); Glucose, Urine (Dipstick) Normal (Negative); Leukocyte 250 Leu/uL (Negative); Nitrite Negative (Negative); Protein, Urine (Dipstick) Negative (Neg-Trace); RBC/HPF 0-3 HPF (0-3); Urobilinogen Normal mg/dL (Less than 2); WBC/HPF 0-3 HPF (0-3)
[2020-04-08 12:57] LABS: Bacteria/HPF 1+ HPF (None Seen)
--- NOTE | 2020-04-08 13:57 | ULT ---
EXAM LIMITED OB ULTRASOUND: History: Abdominal pain in a patient. FINDINGS: A single viable intrauterine fetus is noted in breech presentation. The placenta is posterior. Amniot ic fluid is within normal limits. heart rate is 153 beats/minute. The cervical region was somew hat less than optimally seen but appeared unremarkable. anatomically is not specifically addressed at the time of this examination. biometry: BPD 3.4 cm - 16 weeks 3 days HC 13.1 cm - 16 weeks 5 days AC 10.7 cm - 16 weeks 4 days FL 2.3 cm - 16 weeks 6 days IMPRESSION: Single viable intrauterine fetus 16 weeks 5 days. EDC 09-18-2020 Estimated weight: 166 grams with 42 percentile estimated weight. FU for non emergent an atomy evaluation POS: DIMITRIOS
[2020-04-08] MEDS ORDERED: Acetaminophen 500 MG TAB ONE (14:40)
[2020-04-10 22:09] LABS: Chlamydia by PCR Not Detected (NotDetected); GC by PCR Not Detected (NotDetected)
== END 2020-04-08 14:48 | disposition home or self-care (01) ==
LOC: ERS 11:45
DX: O99.89 Other specified diseases and conditions complicating pregnancy, childbirth and the puerperium (principal); R51 Headache; R10.9 Unspecified abdominal pain; O99.512 Diseases of the respiratory system complicating pregnancy, second trimester; J45.909 Unspecified asthma, uncomplicated; O10.912 Unspecified pre-existing hypertension complicating pregnancy, second trimester; Z3A.17 17 weeks gestation of pregnancy
CPT/HCPCS: 36415; 76815; 80053; 81003; 81015; 83690; 84702; 85025; 87480; 87491; 87510; 87591; 87660; 99284

== ENCOUNTER 2020-09-26 16:33 | Emergency (ER) | payer MEDICAID, OTHER ==
[2020-09-26 17:19] LABS: Hemoglobin 11.7 g/dL (12.0-16.0); Mean Corpuscular Hemoglobin 23.6 pg (27.0-31.0); Mean Corpuscular Volume 75.9 fL (78.0-98.0); Mean Platelet Volume 11.1 fL (7.4-10.4); Platelet Count 225 thou/uL (130-400); Red Blood Cell (RBC) Count 4.96 mill/uL (4.20-5.40); White Blood Cell (WBC) Count 6.7 thou/uL (4.8-10.8)
[2020-09-26 17:33] LABS: ALT (SGPT) 30 U/L (8-55); AST (SGOT) 29 U/L (5-34); Albumin 3.9 g/dL (3.5-5.0); Alkaline Phosphatase 94 U/L (40-110); Anion Gap 12 mmol/L (10-20); BUN (Urea Nitrogen) 11 mg/dL (7.0-18.7); Bilirubin, Total 0.3 mg/dL (0.2-1.2); Calc. Creatinine Clearance 0 mL/min (70-130); Calcium 9.4 mg/dL (7.8-10.44); Carbon Dioxide 23 mmol/L (22-29); Chloride 107 mmol/L (98-107); Estimated GFR-MDRD Greater than 90; Globulin 3.6 g/dL (2.4-3.5); Glucose 84 mg/dL (70-105); Lipase 36 U/L (8-78); Potassium 4.2 mmol/L (3.5-5.1); Protein, Total 7.5 g/dL (6.0-8.3); Sodium 138 mmol/L (136-145)
[2020-09-26 17:48] LABS: Band 2 % (5-11); Eosinophils 2 % (0-10); Hypochromia SLIGHT = 6-15 cells (100X) (0-5/hpf); Lymphocytes 54 % (21-51); MDiff Complete? YES; Microcytosis SLIGHT = 6-15 cells (100X) (0-5/hpf); Monocytes 3 % (0-10); Neutrophil 34 % (42-75); Platelet Morphology Comment Appears Adequate; Polychromasia SLIGHT = 2-3 cells (100X) (0-2/hpf); Reactive Lymphocytes 5 % (0-10); Tear Drops SLIGHT = 2-5 cells (100X) (0-1/hpf)
[2020-09-26] MEDS ORDERED: diphenhydrAMINE 50 MG/ML VIAL ONE (17:55)
[2020-09-26] MEDS ORDERED: Famotidine/PF 20 mg/2ml Vial ONE (17:55)
[2020-09-26] MEDS ORDERED: methylPREDNISolone Sod Succ/PF 125 MG/2 ML VIAL ONE (17:55)
[2020-09-26] MEDS ORDERED: Ketorolac Tromethamine 30 MG/ML VIAL ONE (18:15)
[2020-09-26 18:41] LABS: Bacteria/HPF None Seen HPF (None Seen); Bilirubin Negative (Negative); Blood, Urine 1+ (Negative); Clarity Clear (Clear); Glucose, Urine (Dipstick) Normal (Negative); Ketone, Urine Negative (Negative); Leukocyte 75 Leu/uL (Negative); Nitrite Negative (Negative); Protein, Urine (Dipstick) Negative (Neg-Trace); RBC/HPF 0-3 HPF (0-3); Specific Gravity, Urine 1.018 (1.002-1.036); Squamous Epithelial 0-3 HPF (0-3); Urobilinogen Normal mg/dL (Less than 2); WBC/HPF 0-3 HPF (0-3); pH, Urine 6.5 (5.0-9.0)
[2020-09-26 18:42] LABS: Pregnancy Test - Urine (BHCG) Negative (Negative); Pregu Control Background? CLEAR/WHITE (CLR/WHITE); Pregu Control Bar Appear? YES (CONTROL BAR); Specific Gravity 1.018 (1.002-1.036)
--- NOTE | 2020-09-26 19:05 | CT ---
CT abdomen and pelvis with IV contrast HISTORY: Lower abdomen pain. Recent vaginal delivery. COMPARISON: 12/26/2017. FINDINGS: The lung bases are clear. Gallbladder is surgically absent. Solid organs are intact. Urinary bladder is unremarkable. Prominence of the uterus consistent with recent . No abnorm al fluid collections. No evidence of bowel obstruction or inflammation. Appendix is unremarkable. IMPRESSION : No abnormalities are demonstrated.
== END 2020-09-26 20:29 | disposition home or self-care (01) ==
LOC: ERS 16:33
DX: O99.893 Other specified diseases and conditions complicating puerperium (principal); R10.9 Unspecified abdominal pain; O16.5 Unspecified maternal hypertension, complicating the puerperium; O9A.23 Injury, poisoning and certain other consequences of external causes complicating the puerperium; T50.8X5A Adverse effect of diagnostic agents, initial encounter; J45.909 Unspecified asthma, uncomplicated; Z79.899 Other long term (current) drug therapy
CPT/HCPCS: 74177; 80053; 81003; 81015; 81025; 83690; 85025; 96374; 96375; J1200; J1885; J2930; J7620; S0028

== ENCOUNTER 2021-03-11 16:13 | Emergency (ER) | payer OTHER | END 2021-03-11 17:08 | disposition home or self-care (01) | LOC: ERS 16:13 | DX: M75.22 Bicipital tendinitis, left shoulder (principal); R10.9 Unspecified abdominal pain; J45.909 Unspecified asthma, uncomplicated; I10 Essential (primary) hypertension | CPT/HCPCS: 99281 ==

== ENCOUNTER 2021-06-20 21:32 | Emergency (ER) | payer OTHER | END 2021-06-20 22:33 | disposition home or self-care (01) | LOC: ERS 21:32 | DX: B34.9 Viral infection, unspecified (principal); J45.909 Unspecified asthma, uncomplicated; I10 Essential (primary) hypertension | CPT/HCPCS: 99283 ==

== ENCOUNTER 2021-11-18 14:13 | Emergency (ER) | payer OTHER | END 2021-11-18 17:41 | disposition left against medical advice (07) | LOC: ERS 14:13 | DX: Z53.21 Procedure and treatment not carried out due to patient leaving prior to being seen by health care provider (principal) | CPT/HCPCS: 94760 ==

== ENCOUNTER 2022-06-01 18:45 | Emergency (ER) | payer OTHER ==
[2022-06-01 19:07] LABS: Bacteria/HPF 2+ HPF (None Seen); Bilirubin Negative (Negative); Blood, Urine Negative (Negative); Clarity Turbid (Clear); Glucose, Urine (Dipstick) Normal (Negative); Ketone, Urine 20 mg/dL (Negative); Leukocyte 500 Leu/uL (Negative); Nitrite Negative (Negative); Pregnancy Test - Urine (BHCG) Negative (Negative); Pregu Control Background? CLEAR/WHITE (CLR/WHITE); Pregu Control Bar Appear? YES (CONTROL BAR); Protein, Urine (Dipstick) 20 mg/dL (Neg-Trace); RBC/HPF 0-3 HPF (0-3); Specific Gravity 1.026 (1.002-1.036); Specific Gravity, Urine 1.026 (1.002-1.036); Squamous Epithelial 21-50 HPF (0-3); WBC/HPF Greater than 50 HPF (0-3); pH, Urine 5.5 (5.0-9.0)
[2022-06-01] MEDS ORDERED: Ibuprofen 200 MG TAB ONE (20:37)
[2022-06-01 21:47] LABS: Bilirubin Negative (Negative); Blood, Urine Negative (Negative); Clarity Turbid (Clear); Glucose, Urine (Dipstick) Normal (Negative); Ketone, Urine 60 mg/dL (Negative); Leukocyte 500 Leu/uL (Negative); Nitrite Negative (Negative); Protein, Urine (Dipstick) 10 mg/dL (Neg-Trace); RBC/HPF 0-3 HPF (0-3); Specific Gravity, Urine 1.027 (1.002-1.036); Urobilinogen 6 mg/dL (Less than 2)
[2022-06-01 21:54] LABS: Bacteria/HPF 2+ HPF (None Seen); WBC/HPF Greater than 50 HPF (0-3)
[2022-06-02 11:17] LABS: Chlamydia by PCR Not Detected (NotDetected); GC by PCR DETECTED (NotDetected)
== END 2022-06-01 21:52 | disposition home or self-care (01) ==
LOC: ERS 18:45
DX: N76.0 Acute vaginitis (principal); B96.89 Other specified bacterial agents as the cause of diseases classified elsewhere
CPT/HCPCS: 81003; 81015; 81025; 87480; 87491; 87510; 87591; 87660; 99283

== ENCOUNTER 2023-05-06 15:45 | Emergency (ER) | payer OTHER | END 2023-05-06 15:50 | disposition left against medical advice (07) | LOC: ERS 15:45 | DX: Z53.21 Procedure and treatment not carried out due to patient leaving prior to being seen by health care provider (principal) ==

== ENCOUNTER 2023-10-15 16:27 | Emergency (ER) | payer OTHER ==
[2023-10-15] MEDS ORDERED: Lidocaine 1% PF 5 ML VIAL ONE (18:11)
[2023-10-15] MEDS ORDERED: Bupivacaine 0.25% 10 ML VIAL ONE (18:11)
== END 2023-10-15 18:40 | disposition home or self-care (01) ==
LOC: ERS 16:27
DX: K08.89 Other specified disorders of teeth and supporting structures (principal); I10 Essential (primary) hypertension
CPT/HCPCS: 99283; S0020

== ENCOUNTER 2024-08-30 20:12 | Emergency (ER) | payer BC, MEDICAID, SELFPAY ==
[2024-08-30] MEDS ORDERED: Ketorolac Tromethamine 30 MG (1 mL) VIAL ONE (21:37)
== END 2024-08-30 22:43 | disposition home or self-care (01) ==
LOC: ERS 20:12
DX: M25.511 Pain in right shoulder (principal); I10 Essential (primary) hypertension
CPT/HCPCS: 96372; 99283; J1885

== ENCOUNTER 2024-09-06 13:58 | Emergency (ER) | payer SELFPAY ==
[~2024-09-06 13:58] MED LIST: Iopamidol-370 76% 500 ML MDV (1 ML CHARGE) ONE
[2024-09-06 14:25] LABS: #Basophils Less than 0.03 10x3/uL (0.0-0.2); %Basophils 0.3 % (0.0-1.0); %Eosinophils 2.7 % (0.0-10.0); %Lymphocytes 51.7 % (21.0-51.0); %Monocytes 6.5 % (0.0-10.0); %Neutrophils 38.6 % (42.0-75.0); Hematocrit 39.3 % (36.0-47.0); Hemoglobin 12.7 g/dL (12.0-16.0); Mean Corpuscular HGB CONC 32.3 g/dL (32.0-36.0); Mean Corpuscular Hemoglobin 26.3 pg (27.0-31.0); Mean Corpuscular Volume 81.4 fL (78.0-98.0); Mean Platelet Volume 11.2 fL (7.4-10.4); Platelet Count 190 10x3/uL (130-400); RBC Distribution Width 13.4 % (11.5-14.5); Red Blood Cell (RBC) Count 4.83 mill/uL (4.20-5.40)
[2024-09-06 14:36] LABS: BHCG - Serum Negative (NEGATIVE); Pregs Control Background? CLEAR/WHITE (CLR/WHITE); Pregs Control Bar Appear? YES (CONTROL BAR)
[2024-09-06 14:47] LABS: ALT (SGPT) 16 U/L (8-55); AST (SGOT) 20 U/L (5-34); Albumin 4.2 g/dL (3.5-5.0); Alkaline Phosphatase 61 U/L (40-110); Anion Gap 13 mmol/L (10-20); BUN (Urea Nitrogen) 11 mg/dL (7.0-18.7); Bilirubin, Total 0.5 mg/dL (0.2-1.2); Calc. Creatinine Clearance 0 mL/min (70-130); Calcium 9.8 mg/dL (7.8-10.44); Carbon Dioxide 22 mmol/L (22-29); Chloride 107 mmol/L (98-107); Estimated GFR 100; Globulin 3.7 g/dL (2.4-3.5); Glucose 104 mg/dL (70-105); Lipase 28 U/L (8-78); Potassium 3.6 mmol/L (3.5-5.1); Protein, Total 7.9 g/dL (6.0-8.3); Sodium 138 mmol/L (136-145)
[2024-09-06] MEDS ORDERED: Acetaminophen 500 MG TAB ONE (16:59)
[2024-09-06 17:13] LABS: Bacteria/HPF None Seen HPF (None Seen); Bilirubin Negative (Negative); Blood, Urine Trace (Negative); CAUTI Indications for Culture Pelvic or flank pain; Clarity Clear (Clear); Glucose, Urine (Dipstick) Normal (Negative); Ketone, Urine Negative (Negative); Leukocyte Negative Leu/uL (Negative); Nitrite Negative (Negative); Protein, Urine (Dipstick) Negative (Neg-Trace); RBC/HPF 0-3 HPF (0-3); Specific Gravity, Urine 1.021 (1.002-1.036); Squamous Epithelial 0-3 HPF (0-3); Urobilinogen Normal mg/dL (Less than 2); WBC/HPF 0-3 HPF (0-3); pH, Urine 6.5 (5.0-9.0)
[2024-09-06 17:18] LABS: Urine Culture Reflex No No
[2024-09-06] MEDS ORDERED: Ketorolac Tromethamine 30 MG (1 mL) VIAL ONE (17:25)
[2024-09-06] MEDS ORDERED: diphenhydrAMINE 50 MG/ML VIAL ONE ×2 (17:26→19:45)
[2024-09-06] MEDS ORDERED: Morphine 4 MG/ML VIAL ONE (17:26)
[2024-09-06] MEDS ORDERED: Famotidine/PF 20 mg/2ml Vial ONE (17:29)
[2024-09-06] MEDS ORDERED: methylPREDNISolone Sod Succ 40 MG VIAL ONE (17:29)
[2024-09-06] MEDS ORDERED: Ipratropium/Albuterol 3 ML NEB ONE (19:58)
[2024-09-06] MEDS ORDERED: cefTRIAXone (ROCEPHIN) 500 MG VIAL ONE (20:35)
[2024-09-06] MEDS ORDERED: Sodium Chloride 0.9% 100 ML ONE (20:35)
[2024-09-06 22:12] LABS: Chlamydia by PCR, Vaginal Swab Not Detected (NotDetected); GC by PCR, Vaginal Swab Not Detected (NotDetected)
== END 2024-09-06 21:06 | disposition home or self-care (01) ==
LOC: ERS 13:58
DX: N72 Inflammatory disease of cervix uteri (principal); I10 Essential (primary) hypertension; Z55.6 Problems related to health literacy
CPT/HCPCS: 36415; 74177; 76856; 80053; 81001; 83690; 84703; 85025; 87480; 87491; 87510; 87591; 87660; 94640; 96365; 96375; 96376; J0696; J1200; J1885; J2272; J2919; J3490; J7620; Q9967

== ENCOUNTER 2024-10-18 22:45 | Emergency (ER) | payer OTHER, SELFPAY ==
[2024-10-18 23:22] LABS: BHCG - Serum Negative (NEGATIVE); Pregs Control Background? CLEAR/WHITE (CLR/WHITE); Pregs Control Bar Appear? YES (CONTROL BAR)
[2024-10-18 23:35] LABS: Bacteria/HPF None Seen HPF (None Seen); Bilirubin Negative (Negative); Blood, Urine Negative (Negative); CAUTI Indications for Culture Pelvic or flank pain; Clarity Clear (Clear); Glucose, Urine (Dipstick) Normal (Negative); Ketone, Urine Trace mg/dL (Negative); Leukocyte Negative Leu/uL (Negative); Nitrite Negative (Negative); Protein, Urine (Dipstick) 10 mg/dL (Neg-Trace); RBC/HPF 0-3 HPF (0-3); Specific Gravity, Urine 1.033 (1.002-1.036); Squamous Epithelial 0-3 HPF (0-3); WBC/HPF 0-3 HPF (0-3)
[2024-10-18 23:43] LABS: Urine Culture Reflex No No
[2024-10-18 23:46] LABS: Hematocrit 37.7 % (36.0-47.0); Hemoglobin 12.2 g/dL (12.0-16.0); Mean Corpuscular HGB CONC 32.4 g/dL (32.0-36.0); Mean Corpuscular Hemoglobin 27.1 pg (27.0-31.0); Mean Corpuscular Volume 83.6 fL (78.0-98.0); Mean Platelet Volume 11.2 fL (7.4-10.4); Platelet Count 232 10x3/uL (130-400); RBC Distribution Width 13.2 % (11.5-14.5); Red Blood Cell (RBC) Count 4.51 mill/uL (4.20-5.40)
[2024-10-18 23:47] LABS: ALT (SGPT) 28 U/L (8-55); AST (SGOT) 29 U/L (5-34); Albumin 4.1 g/dL (3.5-5.0); Alkaline Phosphatase 56 U/L (40-110); Anion Gap 12 mmol/L (10-20); BUN (Urea Nitrogen) 13 mg/dL (7.0-18.7); Bilirubin, Total 0.5 mg/dL (0.2-1.2); Calc. Creatinine Clearance 0 mL/min (70-130); Calcium 9.5 mg/dL (7.8-10.44); Carbon Dioxide 21 mmol/L (22-29); Chloride 107 mmol/L (98-107); Estimated GFR 91; Globulin 3.6 g/dL (2.4-3.5); Glucose 96 mg/dL (70-105); Potassium 3.7 mmol/L (3.5-5.1); Protein, Total 7.7 g/dL (6.0-8.3); Sodium 136 mmol/L (136-145)
[2024-10-19] MEDS ORDERED: Ketorolac Tromethamine 30 MG (1 mL) VIAL ONE (00:52)
[2024-10-19 01:13] LABS: Anisocytosis SLIGHT = 6-15 cells HPF (0-5); Eosinophils 3 % (0-10); Lymphocytes 53 % (21-51); Macrocytosis SLIGHT = 6-15 cells HPF (0-5); Neutrophil 42 % (42-75); Platelet Adequacy Comment Platelets Normal; Polychromasia SLIGHT = 2-3 cells HPF (0-2); Reactive Lymphocytes 2 % (0-10)
[2024-10-19] MEDS ORDERED: Ondansetron ODT 4 MG TAB ONE (01:22)
== END 2024-10-19 03:42 | disposition left against medical advice (07) ==
LOC: ERS 22:45
DX: R10.819 Abdominal tenderness, unspecified site (principal); R11.0 Nausea; I10 Essential (primary) hypertension
CPT/HCPCS: 36415; 80053; 81001; 84703; 85025; 96372; 99283; J1885; Q0162

== ENCOUNTER 2024-11-18 00:42 | Emergency (ER) | payer OTHER ==
[2024-11-18 01:26] LABS: Pregnancy Test - Urine (BHCG) Negative (Negative); Pregu Control Background? CLEAR/WHITE (CLR/WHITE); Pregu Control Bar Appear? YES (CONTROL BAR); Specific Gravity 1.027 (1.002-1.036)
[2024-11-18 01:27] LABS: #Basophils 0.03 10x3/uL (0.0-0.2); %Basophils 0.5 % (0.0-1.0); %Lymphocytes 56.4 % (21.0-51.0); %Monocytes 5.5 % (0.0-10.0); %Neutrophils 35.4 % (42.0-75.0); Hematocrit 35.4 % (36.0-47.0); Hemoglobin 11.5 g/dL (12.0-16.0); Mean Corpuscular HGB CONC 32.5 g/dL (32.0-36.0); Mean Corpuscular Hemoglobin 26.9 pg (27.0-31.0); Mean Corpuscular Volume 82.7 fL (78.0-98.0); Mean Platelet Volume 10.5 fL (7.4-10.4); Platelet Count 205 10x3/uL (130-400); RBC Distribution Width 13.2 % (11.5-14.5); Red Blood Cell (RBC) Count 4.28 mill/uL (4.20-5.40)
[2024-11-18 01:29] LABS: Bacteria/HPF None Seen HPF (None Seen); Bilirubin Negative (Negative); Blood, Urine Negative (Negative); CAUTI Indications for Culture Pelvic or flank pain; Clarity Clear (Clear); Glucose, Urine (Dipstick) Normal (Negative); Ketone, Urine Negative (Negative); Leukocyte Negative Leu/uL (Negative); Nitrite Negative (Negative); Protein, Urine (Dipstick) Negative (Neg-Trace); RBC/HPF 0-3 HPF (0-3); Specific Gravity, Urine 1.029 (1.002-1.036); Squamous Epithelial 0-3 HPF (0-3); Urobilinogen 3 mg/dL (Less than 2); WBC/HPF 0-3 HPF (0-3)
[2024-11-18 01:34] LABS: Urine Culture Reflex No No
[2024-11-18 01:43] LABS: ALT (SGPT) 15 U/L (8-55); AST (SGOT) 20 U/L (5-34); Albumin 3.7 g/dL (3.5-5.0); Alkaline Phosphatase 56 U/L (40-110); Anion Gap 11 mmol/L (10-20); BUN (Urea Nitrogen) 11 mg/dL (7.0-18.7); Bilirubin, Total 0.5 mg/dL (0.2-1.2); Calc. Creatinine Clearance 0 mL/min (70-130); Calcium 9.3 mg/dL (7.8-10.44); Carbon Dioxide 22 mmol/L (22-29); Chloride 108 mmol/L (98-107); Estimated GFR 122; Globulin 3.5 g/dL (2.4-3.5); Glucose 92 mg/dL (70-105); Potassium 3.5 mmol/L (3.5-5.1); Protein, Total 7.2 g/dL (6.0-8.3); Sodium 137 mmol/L (136-145)
[2024-11-18] MEDS ORDERED: Ketorolac Tromethamine 30 MG (1 mL) VIAL ONE (02:16)
[2024-11-18] MEDS ORDERED: cefTRIAXone (ROCEPHIN) 500 MG VIAL ONE (02:21)
[2024-11-18] MEDS ORDERED: Lidocaine 1% PF 5 ML VIAL ONE (02:23)
[2024-11-18 11:13] LABS: Chlamydia by PCR, Vaginal Swab *Indeterminate (NotDetected); GC by PCR, Vaginal Swab *Indeterminate (NotDetected)
== END 2024-11-18 03:02 | disposition home or self-care (01) ==
LOC: ERS 00:42
DX: N83.201 Unspecified ovarian cyst, right side (principal); I10 Essential (primary) hypertension
CPT/HCPCS: 36415; 76856; 80053; 81001; 81025; 85025; 87480; 87491; 87510; 87591; 87660; 93976; 96372; J0696; J1885

== ENCOUNTER 2024-12-09 06:53 | Emergency (ER) | payer MEDICAID, SELFPAY ==
[2024-12-09] MEDS ORDERED: Acetaminophen 325 MG TAB ONE (07:47)
[2024-12-09 14:16] LABS: Chlamydia by PCR, Vaginal Swab Not Detected (NotDetected); GC by PCR, Vaginal Swab Not Detected (NotDetected); Tric.vaginalis PCR,Vaginal Sw Not Detected (NotDetected)
== END 2024-12-09 09:02 | disposition home or self-care (01) ==
LOC: ERS 06:53
DX: U07.1 COVID-19 (principal); B30.9 Viral conjunctivitis, unspecified; I10 Essential (primary) hypertension
CPT/HCPCS: 87428; 87491; 87591; 87661; 99283

== ENCOUNTER 2025-09-17 08:47 | Emergency (ER) | payer MEDICAID ==
[2025-09-17] MEDS ORDERED: Oxymetazoline HCl 0.05% (30 ML BOT) ONE (09:27)
== END 2025-09-17 09:41 | disposition home or self-care (01) ==
LOC: ERS 08:47
DX: B34.9 Viral infection, unspecified (principal); H65.91 Unspecified nonsuppurative otitis media, right ear; I10 Essential (primary) hypertension
CPT/HCPCS: 87428; Q0162